=== PATIENT | male | born 1965 | race Caucasian/White ===

== ENCOUNTER 2019-03-14 13:32 | Emergency (ER) | payer SELFPAY ==
[~2019-03-14] VITALS: Ht 180.3 cm; Wt 63.5 kg
[2019-03-14] MEDS ORDERED: ALBUTEROL SULFATE 2.5 MG/3 ML NEBU NEB ONE (14:00)
[2019-03-14] MEDS ORDERED: IPRATROPIUM BROMIDE 0.5 MG/2.5 ML NEBU NEB ONE (14:00)
[2019-03-14] MEDS ORDERED: IV NORMAL SALINE 1000 ML BAG IV ONE (14:00)
[2019-03-14] MEDS ORDERED: methylPREDNISolone SOD SUCC 125 MG/2 ML VIAL IV ONE (14:00)
[2019-03-14] MEDS ORDERED: ALBUTEROL SULFATE 2.5 MG/3 ML NEBU ONE (14:09)
[2019-03-14] MEDS ORDERED: methylPREDNISolone SOD SUCC 125 MG/2 ML VIAL ONE (14:13)
[2019-03-14 14:14] LABS: BASOPHILS # (AUTO) 0.1 K/uL (0.0-8.0); BASOPHILS % (AUTO) 0.8 % (0.0-2.0); EOSINOPHILS # (AUTO) 1.5 K/uL (0.0-0.7); EOSINOPHILS % (AUTO) 21.1 % (0.0-7.0); HEMATOCRIT 48.3 % (36.7-47.1); LYMPHOCYTES # (AUTO) 1.8 K/uL (20.0-40.0); LYMPHOCYTES % (AUTO) 24.3 % (20.5-51.5); MEAN CORPUSCULAR HEMOGLOBIN 30.2 uug (23.8-33.4); MEAN CORPUSCULAR HGB CONC 33 g/dL (32.5-36.3); MONOCYTES # (AUTO) 0.7 K/uL (2.0-10.0); MONOCYTES % (AUTO) 9.8 % (0.0-11.0); NEUTROPHILS # (AUTO) 3.2 K/uL (1.8-8.9); PLATELET COUNT (AUTO) 260 K/uL (152-348); WHITE BLOOD COUNT (AUTO) 7.2 K/uL (3.6-10.2)
[2019-03-14 14:22] LABS: CREATININE 0.8 mg/dL (0.6-1.3); POTASSIUM 4.2 mmol/L (3.5-5.1)
[2019-03-14 14:28] LABS: BILIRUBIN,DIRECT 0.1 mg/dL (0.0-0.2); BILIRUBIN,TOTAL 0.5 mg/dL (0.2-1.0); TOTAL PROTEIN, SERUM 8.2 g/dL (6.4-8.2)
[2019-03-14 14:46] LABS: EOSINOPHILS % (MANUAL) 20 % (0-8); LYMPHOCYTES % (MANUAL) 28 % (20-40); MONOCYTES % (MANUAL) 7 % (2-10); NEUTROPHILS % (MANUAL) 45 % (42-75)
--- NOTE | 2019-03-14 15:16 | NUR ---
Patient discharged to home in stable conditon. Written and verbal after care instructions given. Patient verbalizes understanding of instructions.pt walks in steady gait. pt says feels better.
[2019-03-14 15:49] VITALS: BP 111/71
== END 2019-03-14 15:16 | disposition home or self-care (01) ==
LOC: ER 13:32
DX: J20.9 Acute bronchitis, unspecified (principal); J06.9 Acute upper respiratory infection, unspecified; Z88.2 Allergy status to sulfonamides
CPT/HCPCS: 36415; 71045; 80048; 80076; 84484; 85007; 85025; 87400; 93005; 94640; 96374; 99284; J2930; 70030-TC; A4663; J7030

== ENCOUNTER 2019-04-08 21:11 | Emergency (ER) | payer SELFPAY ==
[~2019-04-08] VITALS: Ht 177.8 cm; Wt 59.0 kg
--- NOTE | 2019-04-08 22:00 | NUR ---
Dr. Montalvo at bedside for MSE
[2019-04-08] MEDS ORDERED: IPRATROPIUM BROMIDE 0.5 MG/2.5 ML NEBU NEB ONE (22:15)
[2019-04-08] MEDS ORDERED: ALBUTEROL SULFATE 2.5 MG/3 ML NEBU NEB ONE (22:15)
[2019-04-08] MEDS ORDERED: IV NORMAL SALINE 1000 ML BAG IV ONE (22:15)
--- NOTE | 2019-04-08 22:15 | NUR ---
Patient declines blood draw and saline lock / IV fluids at this time
--- NOTE | 2019-04-08 23:28 | NUR ---
Patient discharged to home in stable conditon. Written and verbal after care instructions given. Patient verbalizes understanding of instructions. Patient ambulating with steady gait
[2019-04-08 23:29] VITALS: BP 121/84
[2019-06-09] MEDS ORDERED: METH4TAB3 PO (10:32)
[2019-06-09] MEDS ORDERED: ALBU18HF2 INH (10:32)
== END 2019-04-08 23:28 | disposition home or self-care (01) ==
LOC: ER 21:13
DX: J06.9 Acute upper respiratory infection, unspecified (principal); Z60.2 Problems related to living alone; Z88.2 Allergy status to sulfonamides
CPT/HCPCS: 71045; 93005; A4663; J3590; J7030

== ENCOUNTER 2019-06-05 10:38 | Inpatient (IN) | payer MEDICAID ==
[~2019-06-05] VITALS: Ht 172.7 cm; Wt 59.0 kg
--- NOTE | 2019-06-05 10:56 | NUR ---
Patient C/O SOB. A/O x3. Able to verbalize needs, able to speak complete sentenses O2 saturation 91% RA. Placed on 5L O2 via nasal cannula with SpO2 97%. Pt position to comfort, high fowlers position. SRx2 for safety. Able to walk per self without difficulty. Monitored accordingly
--- NOTE | 2019-06-05 10:58 | NUR ---
nursery technician at bedside
--- NOTE | 2019-06-05 10:58 | NUR ---
PT ANXIOUS AND INITIALLY REFUSED IV INSERTION AND REFUSED TO WEAR PPE FOR POSSIBLE RESPIRATORY INFECTIONS ISOLATION PREC INITIATED. PT KEPT CALM AND COMFORTABLE. REASSURED AND REORIENTED PT ABLE TO COMPLY EVENTUALLY PT ABLE TO WEAR PPE INSTRUCTED
--- NOTE | 2019-06-05 11:00 | NUR ---
PT ROOM ON NEG PRESSURE AIRBORNE/CONTACT/DROPLET ISOLATION PREC MINIMIZED PT ROOM CHECK PT MONITORED ACCORDINGLY
[2019-06-05] MEDS ORDERED: methylPREDNISolone SOD SUCC 125 MG/2 ML VIAL IV ONE (11:15)
[2019-06-05] MEDS ORDERED: predniSONE 10 MG TABLET PO ONE (11:15)
[2019-06-05] MEDS ORDERED: TERBUTALINE SULFATE 1 MG/1 ML VIAL SQ ONE (11:15)
[2019-06-05] MEDS ORDERED: TERBUTALINE SULFATE 1 MG/1 ML VIAL ONE (11:22)
[2019-06-05] MEDS ORDERED: methylPREDNISolone SOD SUCC 125 MG/2 ML VIAL ONE (11:22)
[2019-06-05] MEDS ORDERED: ALBUTEROL SULFATE 8 GM HFA.AER.AD IH PRN (11:30)
--- NOTE | 2019-06-05 11:34 | NUR ---
CALL WAS PLACED TO [facility] DR STEPHENS RETURNS SUPERVISOR.
[2019-06-05 11:45] LABS: BASOPHILS % (AUTO) 0.4 % (0.0-2.0); EOSINOPHILS # (AUTO) 0.5 K/uL (0.0-0.7); EOSINOPHILS % (AUTO) 4.2 % (0.0-7.0); HEMATOCRIT 47.7 % (36.7-47.1); HEMOGLOBIN 16.1 g/dL (12.5-16.3); LYMPHOCYTES # (AUTO) 1.1 K/uL (20.0-40.0); LYMPHOCYTES % (AUTO) 9.6 % (20.5-51.5); MEAN CORPUSCULAR HEMOGLOBIN 30.3 uug (23.8-33.4); MEAN CORPUSCULAR HGB CONC 34 g/dL (32.5-36.3); MEAN CORPUSCULAR VOLUME 89.9 fL (73.0-96.2); MONOCYTES # (AUTO) 0.8 K/uL (2.0-10.0); MONOCYTES % (AUTO) 7.4 % (0.0-11.0); NEUTROPHILS # (AUTO) 8.9 K/uL (1.8-8.9); NEUTROPHILS % (AUTO) 78.4 % (38.5-71.5); PLATELET COUNT (AUTO) 335 K/uL (152-348); RED BLOOD CELL COUNT(AUTO) 5.31 MIL/uL (4.06-5.63); WHITE BLOOD COUNT (AUTO) 11.4 K/uL (3.6-10.2)
[2019-06-05 11:50] LABS: ABG BASE EXCESS 3.7 mmol/L; ABG HCO3 29.6 mmol/L; ABG PCO2 48.8 mmHg (35.0-45.0); ABG PH 7.401 (7.350-7.450); ABG PO2 76.2 mmHg (75.0-100.0); ABG SITE RIGHT RADIAL; ABG TOTAL HEMOGLOBIN 16.2 G/dL (13.5-18.0); COHb 1.2 % (0.5-1.5); MetHb 0.2 % (0.0-1.5); O2Hb 94.4 % (94.0-97.0); VENT MODE Nasal Cannula
--- NOTE | 2019-06-05 11:50 | NUR ---
RT AT BEDSIDE FOR ABG DRAW RT LOWERED O2 FROM 5LPM TO 2LPM PT KEPT CALM AND COMFORTABLE. ABLE TO TOLERATE INHALER PT 92% O2SAT
[2019-06-05 11:53] LABS: CREATININE 0.7 mg/dL (0.6-1.3); POTASSIUM 4.2 mmol/L (3.5-5.1)
[2019-06-05 12:05] LABS: BILIRUBIN,DIRECT 0.1 mg/dL (0.0-0.2); BILIRUBIN,TOTAL 0.5 mg/dL (0.2-1.0); TOTAL PROTEIN, SERUM 8.1 g/dL (6.4-8.2)
--- NOTE | 2019-06-05 12:15 | NUR ---
PT ABLE TO TOLERATE 100% OF REGULAR LUNCH MEAL
--- NOTE | 2019-06-05 12:30 | NUR ---
SWALLOW EVAL DONE PT ABLE TO TAKE SIPS OF 30ML WATER
--- NOTE | 2019-06-05 12:30 | NUR ---
DR CHICAS ON THE PHONE WITH ERMOleg OK TO ADMIT TO TELE RM DX: COPD EXACERBATION UNDER LIAKOVETSKY
--- NOTE | 2019-06-05 13:05 | NUR ---
HAND OFF AND SBAR GIVEN TO LIZZ PT WILL BE TRANSFERED WITH ISOLATION PREC PER CURRENT POLICY
--- NOTE | 2019-06-05 14:30 | NUR ---
Pt. admitted to Tele Rm 318 Transported with isolation precations via gurney acc by 3 staff (2ERRN, 1ERLVN) Belongs List completed
--- NOTE | 2019-06-05 14:30 | NUR ---
Received patient from ER via [facility] with Diagnosis of COPD Exacerbation under Dr. Macedo, Patient is awake , alert and verbally responsive. On Oxygen at 2LPM, saturating 95-96%. No complain of pain at this time. patient on Contact and droplet isolation for r/o covid 19. Proper PPE strictly Observed. Kept clean and comfortable. Will continue to monitor.
[2019-06-05] MEDS ORDERED: IPRATROPIUM BROMIDE 0.5 MG/2.5 ML NEBU NEB PRN (15:30)
[2019-06-05 15:45] VITALS: BP 143/65
[2019-06-05] MEDS ORDERED: MAGNESIUM HYDROXIDE 30 ML LIQUID UDC PO PRN (16:30)
[2019-06-05] MEDS ORDERED: HYDROCODONE/APAP 5-325MG TABLET PO PRN (16:30)
[2019-06-05] MEDS ORDERED: ONDANSETRON 4 MG/2 ML VIAL IV PRN (16:30)
[2019-06-05] MEDS ORDERED: ACETAMINOPHEN 325 MG TABLET PO PRN (16:30)
[2019-06-05] MEDS: LEVOFLOXACIN 500 MG/D5W 500 MG in PREMIXED 1 EACH IV SCH (17:48)
--- NOTE | 2019-06-05 19:30 | NUR ---
Received patient awake and alert in bed, A/Ox3. No acute distress noted. No complaints of pain, no complaints of SOB on 2L NC saturating at 98%. Patient has history of COPD, titrated to 1.5L, saturating at 96-97%. Patient is Sinus tachy on the monitor. 100-110. Goes in the 120s when coughing, noted with productive coughing. Patient is on droplet and contact precautions for r/o COVID. Vitals WNL. No fevers noted. Heplock on the left AC is intact and patent. Safety measures initiated. Bed is low and locked, call light within reach. Will continue to monitor.
[2019-06-05 20:00] VITALS: BP 139/89
[2019-06-05] MEDS: methylPREDNISolone SOD SUCC 40 MG/ML VIAL IV SCH (21:01)
[2019-06-06 00:05] VITALS: BP 124/82
[2019-06-06 04:06] VITALS: BP 128/89
[2019-06-06] MEDS: methylPREDNISolone SOD SUCC 40 MG/ML VIAL IV SCH ×3 (05:42→21:29)
[2019-06-06] MEDS: PANTOPRAZOLE SODIUM 40 MG TABLET.DR PO SCH (06:06)
--- NOTE | 2019-06-06 06:10 | NUR ---
Patient slept intermittently throughout the night. SR-ST on the monitor. Patient states, he is feeling better. Still with occasional productive coughing. Medication given as ordered. Patient refused morning labs, educated patient, but still refused and stated "no they poked me twice yesterday, they can do it tomorrow, I can't given blood today" covering and lining supervisor stated he will try again after breakfast. Will endorse to next shift.
[2019-06-06 08:00] VITALS: BP 138/65
--- NOTE | 2019-06-06 08:00 | NUR ---
Received patient in bed, awake, alert and verbally responsive. On Oxygen at 2LPM, saturating 96%. No complain of Pain or discomfort. Afebrile. Remains on droplet and contact Isolation for r/o covid 19. Proper PPE strictly Observed. Kept clean and comfortable. Will continue to monitor.
[2019-06-06 08:54] LABS: BASOPHILS % (AUTO) 0.2 % (0.0-2.0); HEMATOCRIT 46.1 % (36.7-47.1); HEMOGLOBIN 15.5 g/dL (12.5-16.3); LYMPHOCYTES # (AUTO) 0.6 K/uL (20.0-40.0); LYMPHOCYTES % (AUTO) 4.1 % (20.5-51.5); MEAN CORPUSCULAR HEMOGLOBIN 30.3 uug (23.8-33.4); MEAN CORPUSCULAR HGB CONC 34 g/dL (32.5-36.3); MEAN CORPUSCULAR VOLUME 90.1 fL (73.0-96.2); MONOCYTES # (AUTO) 0.5 K/uL (2.0-10.0); MONOCYTES % (AUTO) 3.5 % (0.0-11.0); NEUTROPHILS # (AUTO) 13.5 K/uL (1.8-8.9); NEUTROPHILS % (AUTO) 92.2 % (38.5-71.5); PLATELET COUNT (AUTO) 339 K/uL (152-348); RED BLOOD CELL COUNT(AUTO) 5.12 MIL/uL (4.06-5.63); WHITE BLOOD COUNT (AUTO) 14.6 K/uL (3.6-10.2)
[2019-06-06 09:05] LABS: BILIRUBIN,TOTAL 0.3 mg/dL (0.2-1.0); CREATININE 0.8 mg/dL (0.6-1.3); PHOSPHOROUS 3.5 mg/dL (2.5-4.9); POTASSIUM 4.2 mmol/L (3.5-5.1); TOTAL PROTEIN, SERUM 7.4 g/dL (6.4-8.2)
[2019-06-06 12:00] VITALS: BP 128/78
[2019-06-06] MEDS: LEVOFLOXACIN 500 MG/D5W 500 MG in PREMIXED 1 EACH IV SCH (17:04)
--- NOTE | 2019-06-06 18:16 | NUR ---
Patient in bed, awake, alert and verbally responsive. No signs of distress noted. No SOB. No desaturation noted. Afebrile. No complain of Pain or discomfort. remains on contact/droplet precaution for r/o covid 19, still awaiting for result. All needs attended and met. Kept clean and comfortable. Will endorse to Oncoming Nurse.
[2019-06-06 20:13] VITALS: BP 129/87
[2019-06-06] MEDS: TEMAZEPAM 15 MG CAPSULE PO PRN (21:30)
--- NOTE | 2019-06-06 22:08 | NUR ---
patient received lying in bed watching tv. no s/s of acute distress. v/s stable. on RA 98%. all needs met and medications administered, tolerated well. patient requested temazepam, administered, tolerated well. will continue plan of care.
--- NOTE | 2019-06-07 03:00 | NUR ---
patient awoke from sleep. provided sandwich and drinks. resting comfortably. spo2 at 90% on NC 1L at this time on monitor. will continue to monitor.
[2019-06-07] MEDS: PANTOPRAZOLE SODIUM 40 MG TABLET.DR PO SCH (06:05)
[2019-06-07] MEDS: methylPREDNISolone SOD SUCC 40 MG/ML VIAL IV SCH ×3 (06:05→21:13)
[2019-06-07 06:29] VITALS: BP 120/92
--- NOTE | 2019-06-07 06:33 | NUR ---
patient slept intermittently throughout the night. no s/s of acute distress. v/s stable. afebrile. denies SOB or pain. will continue plan of care.
--- NOTE | 2019-06-07 08:29 | NUR ---
Received pt. resting in bed awake, alert and verbally responsive. No signs of distress noted. No SOB. No desaturation noted. Afebrile. Vitals stable. No complaints of Pain or discomfort. remains on contact/droplet precaution for r/o covid 19, still awaiting for result. All needs met. Kept clean and comfortable. safety measures in place. call light within reach. will continue to monitor pt.
[2019-06-07 10:56] VITALS: BP 127/82
[2019-06-07 16:00] VITALS: BP 141/94
[2019-06-07] MEDS: LEVOFLOXACIN 500 MG/D5W 500 MG in PREMIXED 1 EACH IV SCH (17:00)
--- NOTE | 2019-06-07 18:22 | NUR ---
pt. resting comfortably in bed. Pt. denies sob/ difficulty breathing. pt. denies pain/ discomfort. IV intact L AC 20 gauge intact patent. pt. on room air oxygen saturation within normal limits. no temperature throughout shift. safety measures in place. pt. on droplet/ contact precautions. call light within reach. will continue to monitor pt.
[2019-06-07 20:00] VITALS: BP 138/85
--- NOTE | 2019-06-07 20:14 | NUR ---
Received patient awake and alert in bed, no signs of acute distress noted. No complaints of pain or SOB. Patient stated that he is feeling better. Still noted with productive coughing. Vitals WNL. No fevers noted. On contract/droplet isolation, waiting for COVID19 results. Heplock on the left AC is intact and patent. Safety measures initiated. Bed is low and locked, call light within reach. Will continue to monitor.
[2019-06-07] MEDS: ACIDOPHILUS/BULGARICUS CHEW TAB PO SCH (21:12)
[2019-06-07] MEDS: TEMAZEPAM 15 MG CAPSULE PO PRN (21:13)
[2019-06-08 05:00] VITALS: BP 140/75
[2019-06-08 05:49] LABS: BASOPHILS % (AUTO) 0.1 % (0.0-2.0); EOSINOPHILS % (AUTO) 0.1 % (0.0-7.0); HEMATOCRIT 45.3 % (36.7-47.1); HEMOGLOBIN 15.3 g/dL (12.5-16.3); LYMPHOCYTES # (AUTO) 1.2 K/uL (20.0-40.0); LYMPHOCYTES % (AUTO) 9.3 % (20.5-51.5); MEAN CORPUSCULAR HEMOGLOBIN 30.3 uug (23.8-33.4); MEAN CORPUSCULAR HGB CONC 34 g/dL (32.5-36.3); MEAN CORPUSCULAR VOLUME 90.1 fL (73.0-96.2); MONOCYTES # (AUTO) 0.8 K/uL (2.0-10.0); MONOCYTES % (AUTO) 6.3 % (0.0-11.0); NEUTROPHILS # (AUTO) 10.6 K/uL (1.8-8.9); NEUTROPHILS % (AUTO) 84.2 % (38.5-71.5); PLATELET COUNT (AUTO) 316 K/uL (152-348); RED BLOOD CELL COUNT(AUTO) 5.03 MIL/uL (4.06-5.63); WHITE BLOOD COUNT (AUTO) 12.6 K/uL (3.6-10.2)
[2019-06-08 06:03] LABS: CREATININE 0.8 mg/dL (0.6-1.3); MAGNESIUM 1.9 mg/dL (1.8-2.4); PHOSPHOROUS 4.2 mg/dL (2.5-4.9); POTASSIUM 4.5 mmol/L (3.5-5.1)
[2019-06-08] MEDS: methylPREDNISolone SOD SUCC 40 MG/ML VIAL IV SCH ×3 (06:05→21:01)
[2019-06-08] MEDS: PANTOPRAZOLE SODIUM 40 MG TABLET.DR PO SCH (06:05)
--- NOTE | 2019-06-08 06:47 | NUR ---
Patient slept intermittently throughout the night, no distress noted. Vitals WNL. SR/ST on the monitor. Medications given as ordered. All needs met. Remains on droplet/contact precautions. Called lab for results, still pending. Will endorse to morning shift nurse.
[2019-06-08] MEDS: ACIDOPHILUS/BULGARICUS CHEW TAB PO SCH ×2 (08:20→21:01)
--- NOTE | 2019-06-08 09:00 | NUR ---
RECEIVED PATIENT AWAKE ALERT AND ORIENTED REMAIN ON RESP ISOLATION AND PRECAUTION ORDERED PENDING RESULTS OF THE COVID 19 CULTURES ORDERED ON ROOM AIR WITH NO SHORTNESS OF BREATH NOTED OCCASSIONAL COUGH EPISODES SPITTING UP SMALL AMOUNT OF WHITISH PHLEGM ABLE TO VERBALISE NEEDS CALL LIGHTS AND PERSONAL BELONGINGS ARE WITHIN EASY REACH AT THIS TIME WILL CONTINUE TO OBSERVE.
--- NOTE | 2019-06-08 10:14 | NUR ---
PATIENT SEEN AND EXAMINED BY ROCÍO MANUFACTURING CONTROLLER WITH NO NEW ORDERS AT THIS TIME.
[2019-06-08 12:33] VITALS: BP 141/79
--- NOTE | 2019-06-08 15:00 | NUR ---
RECEIVED RESULT FROM THE LAB PATIENT PATIENT IS NEGATIVE FOR COVID-19 CALLED THE DEBURRER MACHINE NOTIFIED HER AND ALSO NOTIFIED ROCÍO WORKSITE WELLNESS PRACTITIONER ASSISIGNED TO THIS PATIENT PATIENT REMOVED FROM ISOLATION AT THIS TIME OCCASSIONAL COUGH WITH SCANTY AMOUNT OF CLEAR THIN SECRETIONS REMAIN ON SOLU MEDROL ORDERED WILL CONTINUE TO OBSERVE
[2019-06-08 15:49] VITALS: BP 144/81
[2019-06-08] MEDS: LEVOFLOXACIN 500 MG/D5W 500 MG in PREMIXED 1 EACH IV SCH (17:23)
--- NOTE | 2019-06-08 18:30 | NUR ---
RESTING IN HIS ROOM WITH IV ATB IN PROGRESS ORDERED WITH NO ADVERSE OR ALLERGIC REACTIONS AT THIS TIME NO SOB NOTED TO BE USING O2 ON AND OFF WITH ADEQUATE SATS USES O2 AT TIMES STATED O2 MAKES HIM FEEL BETTER MADE COMFORTABLE WILL CONTINUE TO OBSERVE.
[2019-06-08 19:37] VITALS: BP 140/95
--- NOTE | 2019-06-08 19:38 | NUR ---
Received patient awake and alert in bed, no signs of acute distress noted. No complaints or pain or SOB, stated feeling good. Heplock on the left forearm is intact and patent. Patient no longer on droplet/contact isolation. Result for COVID19 is negative. Vitals WNL. Safety measures initiated. Bed is low and locked, call light within reach. Will continue to monitor.
[2019-06-08] MEDS: TEMAZEPAM 15 MG CAPSULE PO PRN (22:50)
[2019-06-09 04:54] VITALS: BP 138/80
[2019-06-09] MEDS: PANTOPRAZOLE SODIUM 40 MG TABLET.DR PO SCH (06:11)
[2019-06-09] MEDS: methylPREDNISolone SOD SUCC 40 MG/ML VIAL IV SCH ×2 (06:11→14:22)
--- NOTE | 2019-06-09 07:30 | NUR ---
PATIENT RECEIVED IN BED, AWAKE, ALERT, ORIENTED, HYPER VOCAL. USES O2 ON AND OFF BUT NO SIGNS OF RESPIRATORY DISTRESS. STATED THAT HE COUGHS OCCASIONALLY, ALSO STATED THAT HE SLEPT WELL LAST NIGHT. CALL LIGHTS AND ALL HIS PERSONAL BELONGINGS ARE WITHIN EASY REACH. PLAN FOR THE DAY IS DOCTOR TO SEE HIM AND DISCUSS POSSIBLE DISCHARGE AND HE EXPRESSED UNDERSTANDING. WILL CONTINUE TO OBSERVE.
[2019-06-09] MEDS: ACIDOPHILUS/BULGARICUS CHEW TAB PO SCH (08:26)
[2019-06-09 08:42] LABS: CREATININE 0.8 mg/dL (0.6-1.3); POTASSIUM 4.1 mmol/L (3.5-5.1)
[2019-06-09 08:52] LABS: LYMPHOCYTES # (AUTO) 1.3 K/uL (20.0-40.0); MONOCYTES # (AUTO) 0.7 K/uL (2.0-10.0); PLATELET COUNT (AUTO) 340 K/uL (152-348); RED BLOOD CELL COUNT(AUTO) 5.53 MIL/uL (4.06-5.63)
--- NOTE | 2019-06-09 08:59 | NUR ---
PATIENT SEEN AND EXAMINED BY MERRILLY VEGETABLE II FARMWORKER WITH DISCHARGE PLANNING AT THIS TIME AWAITING FOR ORDERS.
[2019-06-09 09:12] LABS: BASOPHILS % (AUTO) 0.2 % (0.0-2.0); EOSINOPHILS % (AUTO) 0.4 % (0.0-7.0); LYMPHOCYTES % (AUTO) 12.1 % (20.5-51.5); MEAN CORPUSCULAR HEMOGLOBIN 30.1 uug (23.8-33.4); MEAN CORPUSCULAR HGB CONC 33 g/dL (32.5-36.3); MEAN CORPUSCULAR VOLUME 91.1 fL (73.0-96.2); MONOCYTES % (AUTO) 6.9 % (0.0-11.0); NEUTROPHILS # (AUTO) 8.4 K/uL (1.8-8.9); NEUTROPHILS % (AUTO) 80.4 % (38.5-71.5); WHITE BLOOD COUNT (AUTO) 10.4 K/uL (3.6-10.2)
[2019-06-09 09:13] LABS: HEMATOCRIT 50.4 % (36.7-47.1); HEMOGLOBIN 16.7 g/dL (12.5-16.3)
--- NOTE | 2019-06-09 11:07 | NUR ---
PATIENT HAS A DISCHARGE ORDER PER THE PATTERN CHANGER STATED TO GIVE HIS LEVAQUIN THAT HE IS SUPPOSED TO GET AT 1800 TODAY BY 1400 THE PATIENT IS PLANNING TO BE PICKED UP BY 1500 PHARMACY AWARE TO SEND THE DOSE EARLY.
[2019-06-09 11:37] VITALS: BP 131/89
[2019-06-09] MEDS: LEVOFLOXACIN 500 MG/D5W 500 MG in PREMIXED 1 EACH IV SCH (14:22)
--- NOTE | 2019-06-09 16:30 | NUR ---
PATIENT DISCHARGED. PICKED UP BY HIS MOTHER'S CAREGIVER, BERTO. IN SATISFACTORY CONDITION, WITH DISCHARGE INSTRUCTION AND ALL HIS PERSONAL BELONGINGS. PATIENT INSTRUCTED TO EHS ENGINEER HIS MEDICATION FROM HIS LOCAL PHARMACY, TAKE MEDICATION ORDERED AND MAKE A FOLLOW UP APPOINTMENT WITH HIS PHYSICIAN IN ONE WEEK, PATIENT EXPRESSED UNDERSTANDING. DENIES SOB.
== END 2019-06-09 16:30 | disposition home or self-care (01) | DRG 140 ==
LOC: ER 10:38 → TELE3 13:21
PROVIDERS: ADMIT Internal Medicine; ATTEND Nurse Practitioner Acute Care
DX: J44.1 Chronic obstructive pulmonary disease with (acute) exacerbation (principal); E44.0 Moderate protein-calorie malnutrition; Z87.01 Personal history of pneumonia (recurrent); Z87.891 Personal history of nicotine dependence; E86.0 Dehydration; E87.1 Hypo-osmolality and hyponatremia; R73.03 Prediabetes; J45.909 Unspecified asthma, uncomplicated; Z68.1 Body mass index [BMI] 19.9 or less, adult
CPT/HCPCS: 36415; 36600; 70030-TC; 71045; 83735; 84100; 85025; 87400; 93005; A4663; G0378; J1956; J2920; J2930; J3105; J3535; J7060

== ENCOUNTER 2019-09-01 17:23 | Emergency (ER) | payer SELFPAY ==
[~2019-09-01] VITALS: Ht 172.7 cm; Wt 56.7 kg
[~2019-09-01 17:23] MED LIST: ALBU18HF2 INH; METH4TAB3 PO
--- NOTE | 2019-09-01 17:23 | NUR ---
Dr. Garcia at bedside for MSE
[2019-09-01] MEDS ORDERED: ALBUTEROL SULFATE 8 GM HFA.AER.AD IH STA (17:26)
[2019-09-01] MEDS ORDERED: DOXYCYCLINE HYCLATE 100 MG TABLET ONE (17:42)
[2019-09-01] MEDS ORDERED: predniSONE 50 MG TABLET ONE (17:43)
[2019-09-01] MEDS ORDERED: predniSONE 10 MG TABLET ONE (17:43)
[2019-09-01] MEDS ORDERED: predniSONE 20 MG TABLET PO ONE (17:45)
[2019-09-01] MEDS ORDERED: DOXYCYCLINE HYCLATE 100 MG TABLET PO ONE (17:45)
--- NOTE | 2019-09-01 18:15 | NUR ---
Patient discharged to home in stable condition. Written and verbal after care instructions given. Patient verbalizes understanding of instructions. Stressed follow up or return to ER for worsening s/s. Patient ambulating with steady gait. NAD noted
[2019-09-01 18:32] VITALS: BP 128/63
== END 2019-09-01 18:15 | disposition home or self-care (01) ==
LOC: ER 17:23
DX: J44.1 Chronic obstructive pulmonary disease with (acute) exacerbation (principal); F17.200 Nicotine dependence, unspecified, uncomplicated; Z87.01 Personal history of pneumonia (recurrent); R73.03 Prediabetes
CPT/HCPCS: 71045; 93005; 94640; 94664; 99284; J7512 ×2; 70030-TC; A4663; J3535

== ENCOUNTER 2020-05-14 17:22 | Inpatient (IN) | payer MEDICAID, MEDICARE ==
[~2020-05-14] VITALS: Ht 172.7 cm; Wt 59.0 kg
[~2020-05-14 17:22] MED LIST changes: -METH4TAB3 PO
[2020-05-14] MEDS ORDERED: CLINDAMYCIN PHOSPHATE IV 900 MG in IV DEXTROSE 5% 100 ML IV ONE (18:15)
[2020-05-14] MEDS ORDERED: VANCOMYCIN IV 1,000 MG in IV DEXTROSE 5% 250 ML IV ONE (18:15)
[2020-05-14] MEDS ORDERED: IMIPENEM/CILASTATIN SODIUM 1,000 MG in IV NORMAL SALINE 250 ML IV ONE (18:15)
[2020-05-14] MEDS ORDERED: VANCOMYCIN 1G/D5W 200 ML PIGGYBACK IV ONE (18:15)
--- NOTE | 2020-05-14 18:37 | NUR ---
PT IS IN ROOM #2B. DR LINTON EVALUATED THE PT.
[2020-05-14 18:38] LABS: BASOPHILS # (AUTO) 0.1 K/uL (0.0-8.0); BASOPHILS % (AUTO) 0.6 % (0.0-2.0); EOSINOPHILS # (AUTO) 0.6 K/uL (0.0-0.7); EOSINOPHILS % (AUTO) 3.2 % (0.0-7.0); HEMATOCRIT 32.2 % (36.7-47.1); HEMOGLOBIN 10.9 g/dL (12.5-16.3); LYMPHOCYTES # (AUTO) 1.5 K/uL (20.0-40.0); LYMPHOCYTES % (AUTO) 8.6 % (20.5-51.5); MEAN CORPUSCULAR HEMOGLOBIN 30.4 uug (23.8-33.4); MEAN CORPUSCULAR HGB CONC 34 g/dL (32.5-36.3); MEAN CORPUSCULAR VOLUME 89.4 fL (73.0-96.2); MONOCYTES # (AUTO) 0.8 K/uL (2.0-10.0); MONOCYTES % (AUTO) 4.6 % (0.0-11.0); NEUTROPHILS # (AUTO) 14.3 K/uL (1.8-8.9); PLATELET COUNT (AUTO) 512 K/uL (152-348); WHITE BLOOD COUNT (AUTO) 17.3 K/uL (3.6-10.2)
[2020-05-14 18:45] LABS: CREATININE 0.8 mg/dL (0.6-1.3); POTASSIUM 4.2 mmol/L (3.5-5.1)
[2020-05-14 18:51] LABS: BILIRUBIN,DIRECT 0.1 mg/dL (0.0-0.2); BILIRUBIN,TOTAL 0.2 mg/dL (0.2-1.0); TOTAL PROTEIN, SERUM 6.8 g/dL (6.4-8.2)
[2020-05-14] MEDS ORDERED: VANCOMYCIN IV 200 ML ONE (18:56)
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
[2020-05-14] MEDS ORDERED: CLINDAMYCIN 900MG/D5W 100ML IVPB **ER PYXIS ONLY IJ ONE (20:04)
[2020-05-14] MEDS ORDERED: ACETAMINOPHEN 325 MG TABLET PO PRN (20:15)
[2020-05-14] MEDS ORDERED: MAGNESIUM HYDROXIDE 30 ML LIQUID UDC PO PRN (20:15)
[2020-05-14] MEDS ORDERED: Z GUARD REMEDY PASTE 57 GM TUBE TOP PRN (20:15)
[2020-05-14] MEDS ORDERED: ONDANSETRON 4 MG/2 ML VIAL IV PRN (20:15)
[2020-05-14] MEDS ORDERED: ALBUTEROL SULFATE 8 GM HFA.AER.AD INH PRN (20:30)
--- NOTE | 2020-05-14 20:40 | NUR ---
Report given to Maritza GALLEGOS. Patient will be transferred to Room 330. All belongings with patient. Old record with patient.
[2020-05-14] MEDS: IV NS 1000 ML 1,000 ML IV PRN (21:21)
[2020-05-14] MEDS ORDERED: MEROPENEM 1 G VIAL IV ONE (21:33)
[2020-05-14] MEDS: ENOXAPARIN SODIUM 40 MG/0.4 ML DISP.SYRIN SQ SCH (21:37)
[2020-05-14] MEDS: MEROPENEM 1 G in IV NORMAL SALINE 100 ML IV SCH (21:56)
[2020-05-14 22:00] VITALS: BP 103/77
[2020-05-14] MEDS ORDERED: MEROPENEM 1 G in IV NORMAL SALINE 100 ML IV SCH (22:00)
[2020-05-14 23:00] VITALS: BP 103/77
[2020-05-15 04:00] VITALS: BP 100/66
[2020-05-15] MEDS: MEROPENEM 1 G in IV NORMAL SALINE 100 ML IV SCH ×3 (05:01→22:05)
[2020-05-15] MEDS: PANTOPRAZOLE SODIUM 40 MG TABLET.DR PO SCH (06:19)
[2020-05-15] MEDS: HYDROCODONE/APAP 5-325MG TABLET PO PRN ×2 (06:19→23:43)
--- NOTE | 2020-05-15 06:46 | NUR ---
Pt slept intermittently throughout the night. Admitted to PA at 2105H. Assessment complete and all belongings accounted for. Tolerated all medications well. Wound care done of left foot, pictures in the chart. Wound care consult is ordered. Bed is locked and in lowest position, call light is within reach. No other issues or concerns at this time. Will endorse to day shift.
[2020-05-15 07:10] LABS: BASOPHILS # (AUTO) 0.1 K/uL (0.0-8.0); BASOPHILS % (AUTO) 0.9 % (0.0-2.0); EOSINOPHILS # (AUTO) 0.3 K/uL (0.0-0.7); EOSINOPHILS % (AUTO) 3.7 % (0.0-7.0); HEMATOCRIT 31.6 % (36.7-47.1); HEMOGLOBIN 10.6 g/dL (12.5-16.3); LYMPHOCYTES # (AUTO) 1.3 K/uL (20.0-40.0); LYMPHOCYTES % (AUTO) 13.7 % (20.5-51.5); MEAN CORPUSCULAR HEMOGLOBIN 30.3 uug (23.8-33.4); MEAN CORPUSCULAR HGB CONC 34 g/dL (32.5-36.3); MONOCYTES # (AUTO) 0.6 K/uL (2.0-10.0); MONOCYTES % (AUTO) 6.7 % (0.0-11.0); PLATELET COUNT (AUTO) 499 K/uL (152-348); RED BLOOD CELL COUNT(AUTO) 3.51 MIL/uL (4.06-5.63); WHITE BLOOD COUNT (AUTO) 9.4 K/uL (3.6-10.2)
[2020-05-15 07:18] LABS: CREATININE 0.7 mg/dL (0.6-1.3); MAGNESIUM 1.9 mg/dL (1.8-2.4); PHOSPHOROUS 3.4 mg/dL (2.5-4.9); POTASSIUM 3.9 mmol/L (3.5-5.1)
[2020-05-15] MEDS: VANCOMYCIN IV 750 MG in IV DEXTROSE 5% 250 ML IV SCH ×2 (08:00→20:34)
[2020-05-15 08:18] LABS: THYROID STIMULATING HORMONE 1.151 mIU/mL (0.358-3.740)
[2020-05-15 12:00] VITALS: BP 113/63
[2020-05-15 12:06] LABS: *AMPHETAMINE, URINE NEGATIVE (NEGATIVE); *CANNABINOID, URINE NEGATIVE (NEGATIVE); *COCCAINE, URINE NEGATIVE (NEGATIVE); *OPIATE, URINE POSITIVE (NEGATIVE); *PHENCYCLIDINE SCREEN,URINE NEGATIVE (NEGATIVE)
[2020-05-15 15:14] VITALS: BP 119/79
[2020-05-15] MEDS: IV NS 1000 ML 1,000 ML IV PRN (17:51)
--- NOTE | 2020-05-15 19:27 | NUR ---
pt awake alert and orientedx4, all medications given as ordered, pt on room air, no reports of pain, no signs of distress noted. all needs met this shift. pt has healthy appetite, cooperative with plan of care. Pt has BRP, ambulates to restroom, pt has walker in room at bedside. On regular diet, dressing changed, culture taken pending results, applied xerofoam, kerlix and coband. dressing is clean dry and intact. IV access on the right FA 18g IVf infusing NS @75cc, patent and intact. bed in low and locked position, call light within reach, all medications given as ordered, will endorse to oncoming nurse.
--- NOTE | 2020-05-15 20:14 | NUR ---
Received patient AAOx4. No s/s of acute distress noted at this time. Pt on RA denies SOB. Left leg dressing clean, dry, and intact. Pt c/o discomfort and Right FA IV site, will insert a new IV. Pt refused Lovenox. Provided patient with medication education and reviewed the benefits and risk. Patient continued to refused. Safety measures in place, bed locked in low position, and call light within reach.
[2020-05-15] MEDS: ENOXAPARIN SODIUM 40 MG/0.4 ML DISP.SYRIN SQ SCH ×2 (20:38→21:00)
[2020-05-15 21:03] VITALS: BP 114/61
[2020-05-16] MEDS ORDERED: diphenhydrAMINE 25 MG CAP PO PRN (01:00)
[2020-05-16 05:17] VITALS: BP 130/83
[2020-05-16] MEDS: MEROPENEM 1 G in IV NORMAL SALINE 100 ML IV SCH ×3 (05:21→21:56)
[2020-05-16] MEDS: PANTOPRAZOLE SODIUM 40 MG TABLET.DR PO SCH (06:24)
--- NOTE | 2020-05-16 07:30 | NUR ---
Received patient in bed sleeping but easily arousable. No resp distress noted. No facial grimacing. Left lower leg dressing intact. No bleeding noted. Bed kept low and locked. Call button within reach. Will continue to monitor.
--- NOTE | 2020-05-16 08:35 | NUR ---
Patient with scheduled vanco trough this morning at 0700. However, patient refused saying he wants it after breakfast. Called pharmacy and spoke to Crow said to hold Vancomycin 8am dose for now until result. Spoke to Natanael at lab and confirmed he will remind ceo ziff davis to come back. Patient aware and agreed.
[2020-05-16 09:38] LABS: BASOPHILS % (AUTO) 0.4 % (0.0-2.0); EOSINOPHILS # (AUTO) 0.3 K/uL (0.0-0.7); EOSINOPHILS % (AUTO) 2.6 % (0.0-7.0); HEMATOCRIT 33.2 % (36.7-47.1); HEMOGLOBIN 11.2 g/dL (12.5-16.3); LYMPHOCYTES # (AUTO) 1.1 K/uL (20.0-40.0); LYMPHOCYTES % (AUTO) 11.3 % (20.5-51.5); MEAN CORPUSCULAR HEMOGLOBIN 30.4 uug (23.8-33.4); MEAN CORPUSCULAR HGB CONC 34 g/dL (32.5-36.3); MEAN CORPUSCULAR VOLUME 90.1 fL (73.0-96.2); MONOCYTES # (AUTO) 0.6 K/uL (2.0-10.0); MONOCYTES % (AUTO) 5.7 % (0.0-11.0); NEUTROPHILS # (AUTO) 8.1 K/uL (1.8-8.9); PLATELET COUNT (AUTO) 585 K/uL (152-348); RED BLOOD CELL COUNT(AUTO) 3.68 MIL/uL (4.06-5.63); WHITE BLOOD COUNT (AUTO) 10.1 K/uL (3.6-10.2)
[2020-05-16 09:43] LABS: CREATININE 0.9 mg/dL (0.6-1.3); MAGNESIUM 1.9 mg/dL (1.8-2.4); PHOSPHOROUS 3.1 mg/dL (2.5-4.9)
[2020-05-16] MEDS: VANCOMYCIN IV 750 MG in IV DEXTROSE 5% 250 ML IV SCH ×2 (09:55→17:20)
[2020-05-16 12:51] VITALS: BP 112/75
[2020-05-16] MEDS: HYDROCODONE/APAP 5-325MG TABLET PO PRN ×2 (13:05→21:26)
[2020-05-16 15:49] VITALS: BP 110/80
[2020-05-16] MEDS: METFORMIN HCL 500 MG TABLET PO SCH (17:20)
--- NOTE | 2020-05-16 18:52 | NUR ---
Patient is alert and oriented. Denies sob. Due meds given and tolerated. On IV Vancomycin and Merrem tolerated. No adverse reaction noted. LFA IV intact and patent. Patient is comfortable. Bed kept low and locked at all times. Call light within reach. Needs attended. Will continue to monitor.
[2020-05-16 20:49] VITALS: BP 130/80
[2020-05-16] MEDS: ENOXAPARIN SODIUM 40 MG/0.4 ML DISP.SYRIN SQ SCH (21:00)
[2020-05-17] MEDS: VANCOMYCIN IV 750 MG in IV DEXTROSE 5% 250 ML IV SCH ×2 (01:48→10:23)
[2020-05-17] MEDS: IV NS 1000 ML 1,000 ML IV PRN (01:50)
[2020-05-17 04:58] VITALS: BP 142/85
[2020-05-17] MEDS: MEROPENEM 1 G in IV NORMAL SALINE 100 ML IV SCH ×3 (05:29→21:11)
[2020-05-17] MEDS: PANTOPRAZOLE SODIUM 40 MG TABLET.DR PO SCH (06:31)
[2020-05-17 06:52] LABS: BASOPHILS # (AUTO) 0.1 K/uL (0.0-8.0); BASOPHILS % (AUTO) 0.8 % (0.0-2.0); EOSINOPHILS # (AUTO) 0.1 K/uL (0.0-0.7); EOSINOPHILS % (AUTO) 0.9 % (0.0-7.0); HEMATOCRIT 34.7 % (36.7-47.1); HEMOGLOBIN 11.5 g/dL (12.5-16.3); LYMPHOCYTES # (AUTO) 1.1 K/uL (20.0-40.0); LYMPHOCYTES % (AUTO) 10.6 % (20.5-51.5); MEAN CORPUSCULAR HEMOGLOBIN 30.4 uug (23.8-33.4); MEAN CORPUSCULAR HGB CONC 33 g/dL (32.5-36.3); MEAN CORPUSCULAR VOLUME 91.7 fL (73.0-96.2); MONOCYTES # (AUTO) 0.8 K/uL (2.0-10.0); MONOCYTES % (AUTO) 7.7 % (0.0-11.0); NEUTROPHILS # (AUTO) 8.1 K/uL (1.8-8.9); PLATELET COUNT (AUTO) 519 K/uL (152-348); RED BLOOD CELL COUNT(AUTO) 3.78 MIL/uL (4.06-5.63); WHITE BLOOD COUNT (AUTO) 10.2 K/uL (3.6-10.2)
[2020-05-17 07:19] LABS: CARBON DIOXIDE 26 mmol/L (21-32); CHLORIDE 100 mmol/L (98-107); CREATININE 0.5 mg/dL (0.6-1.3); GLUCOSE 94 mg/dL (74-106); MAGNESIUM 2.1 mg/dL (1.8-2.4); PHOSPHOROUS 3.3 mg/dL (2.5-4.9); POTASSIUM 4.7 mmol/L (3.5-5.1); UREA NITROGEN, BLOOD 10 mg/dL (7-18)
--- NOTE | 2020-05-17 07:35 | NUR ---
Pt is in bed resting, A&O4 on room air saturating at 99%. LFA IV is patent and flushing well. No acute distress noted. Pt is able to make needs known. Bed in lowest position. Safety measures in place. Call light in reach. Will continue to monitor.
[2020-05-17] MEDS: METFORMIN HCL 500 MG TABLET PO SCH ×2 (08:54→18:56)
[2020-05-17] MEDS: HYDROCODONE/APAP 5-325MG TABLET PO PRN ×2 (08:54→22:41)
[2020-05-17 12:00] VITALS: BP 107/66
[2020-05-17 16:00] VITALS: BP 104/63
[2020-05-17] MEDS: VANCOMYCIN IV 1,000 MG in IV DEXTROSE 5% 250 ML IV SCH (18:56)
--- NOTE | 2020-05-17 19:57 | NUR ---
Pt is in bed resting, A&O4 on room air saturating at 98%. New IV inserted on LFA is flushing well and patent, received Vanco and Merrem as ordered. Pt instructed to be NPO at midnight for procedure tomorrow at noon. Dressing changed during shift. All Meds given as ordered. All needs met. Safety measures in place. Will endorse to oncoming nurse.
[2020-05-17 20:18] VITALS: BP 124/70
[2020-05-17] MEDS: ENOXAPARIN SODIUM 40 MG/0.4 ML DISP.SYRIN SQ SCH (20:48)
--- NOTE | 2020-05-17 23:12 | NUR ---
Received patient AAOx4. No s/s of acute distress noted at this time. VSS. Left leg dressing clean, dry, and intact. Pt c/o discomfort in leg 7/10 pain administered NORCO PRN and Left FA IV site 20G, patent and intact infusing NS 75cc/hr and IV antibiotic. Pt refused Lovenox. Provided patient with medication education and reviewed the benefits and risk. Patient verbalized understanding and refuses. Snack provided. Aware of NPO after midnight. Safety measures in place, bed locked in low position, and call light within reach. Will monitor through the night.
[2020-05-18] MEDS: VANCOMYCIN IV 1,000 MG in IV DEXTROSE 5% 250 ML IV SCH ×3 (02:38→18:02)
[2020-05-18] MEDS: MEROPENEM 1 G in IV NORMAL SALINE 100 ML IV SCH ×3 (05:51→22:41)
[2020-05-18] MEDS: PANTOPRAZOLE SODIUM 40 MG TABLET.DR PO SCH (06:06)
[2020-05-18] MEDS: HYDROCODONE/APAP 5-325MG TABLET PO PRN (06:06)
[2020-05-18 06:15] LABS: BASOPHILS # (AUTO) 0.1 K/uL (0.0-8.0); BASOPHILS % (AUTO) 1.3 % (0.0-2.0); EOSINOPHILS # (AUTO) 0.2 K/uL (0.0-0.7); EOSINOPHILS % (AUTO) 2.4 % (0.0-7.0); HEMATOCRIT 32.8 % (36.7-47.1); HEMOGLOBIN 10.9 g/dL (12.5-16.3); LYMPHOCYTES # (AUTO) 1.1 K/uL (20.0-40.0); LYMPHOCYTES % (AUTO) 14.8 % (20.5-51.5); MEAN CORPUSCULAR HEMOGLOBIN 29.9 uug (23.8-33.4); MEAN CORPUSCULAR HGB CONC 33 g/dL (32.5-36.3); MEAN CORPUSCULAR VOLUME 90.1 fL (73.0-96.2); MONOCYTES # (AUTO) 0.8 K/uL (2.0-10.0); MONOCYTES % (AUTO) 10.1 % (0.0-11.0); NEUTROPHILS # (AUTO) 5.5 K/uL (1.8-8.9); NEUTROPHILS % (AUTO) 71.4 % (38.5-71.5); PLATELET COUNT (AUTO) 453 K/uL (152-348); RED BLOOD CELL COUNT(AUTO) 3.64 MIL/uL (4.06-5.63); WHITE BLOOD COUNT (AUTO) 7.7 K/uL (3.6-10.2)
[2020-05-18 06:32] LABS: CARBON DIOXIDE 31 mmol/L (21-32); CHLORIDE 100 mmol/L (98-107); CREATININE 0.6 mg/dL (0.6-1.3); GLUCOSE 100 mg/dL (74-106); MAGNESIUM 1.9 mg/dL (1.8-2.4); PHOSPHOROUS 3.9 mg/dL (2.5-4.9); UREA NITROGEN, BLOOD 11 mg/dL (7-18)
[2020-05-18] MEDS: METFORMIN HCL 500 MG TABLET PO SCH ×2 (08:00→18:02)
--- NOTE | 2020-05-18 09:34 | NUR ---
RECEIVED PATIENT ALERT AND ORIENTED x 4, SLEEPING INTERMITTENTLY THIS MORNING. VSS. AWARE OF NPO STATUS FOR SURGICAL WOUND DEBRIDEMENT TODAY. METFORMIN HELD D/T MORNING LAB GLUCOSE 100 AND NPO STATUS UNTIL POST-SURGERY.VERBALIZED UNDERSTANDING. IV ON LEFT FOREARM 20G - FLUSHED AND PATENT. SAFETY PRECAUTION IN PLACE. WILL CONTINUE TO MONITOR.
--- NOTE | 2020-05-18 10:21 | NUR ---
FOOD DELIVERY FROM [employer] RECEIVED AND DELIVERED BY SECURITY UP TO THIRD FLOOR NURSING STATION. INTERCEPTED D/T PATIENT'S NPO STATUS PRIOR TO SCHEDULED SURGERY. PHARMACIST AIDE AT NURSING STATION INQUIRING ABOUT PATIENT STATUS TO CONFIRM HOMELESS STATUS. INFORMED PHARMACIST AIDE OF THAT PATIENT IS ASLEEP AND SLUMP OVER HIS BED SO IT WILL BE DIFFICULT TO INTERVIEW HIM AT THIS TIME, RAISING SUSPICION D/T PATIENT'S POLYSUBSTANCE ABUSE. PATIENT RECEIVED SAME [employer] DELIVERY YESTERDAY. SEARCHED [employer]S BAG AND FOUND THREE WHITE, OVAL PILLS, AND A TARRY BLACK SUBSTANCE WRAPPED IN FOIL. REMOVED FROM THE SANDY'S BAG AND GIVEN TO SECURITY. [employer] CALLED BY [employer] REGARDING THE SUBSTANCES FOUND. MD NOTIFIED AND AWARE OF SITUATION. WILL CONTINUE TO MONITOR.
--- NOTE | 2020-05-18 10:25 | NUR ---
Commercial Counsel attempted to meet with the patient to verify living situation, but was informed by patient's nurse Geri that patient was lethargic at this time. SW attempted to gather information from nursing regarding patient's living situation and psychosocial needs, and was informed that patient's living situation was unclear. Nursing also informed this SW that patient has a history of polysubstance use, and that patient's friends were delivering Anna's to patient, both yesterday and today. Due to patient being NPO in preparation for surgery today, the Anna's meal that was delivered today was being kept for the patient to have at a later time. Nursing also described fluctuations in patient's level of consciousness and patient's mood over the last couple of days. Per protocol, the Anna's bag that was delivered today was searched, and unprescribed narcotics were found folded up in tissue and foil and placed in-between the bread and the meat antony. air defense artillery officer Saturnino and security attendant Sajan Gutierrez were informed, along with Slate Roofer Osiris. SW will remain available to follow-up with the patient at a later time.
--- NOTE | 2020-05-18 11:30 | NUR ---
PICKED UP BY OR STAFF. VSS. NO S/S OF DISTRESS NOTED. JEWELRY REMOVED AND PLACED AT BEDSIDE, PER PATIENT REQUEST.
[2020-05-18 11:42] VITALS: BP 120/83
[2020-05-18] MEDS ORDERED: FENTANYL CITRATE 100 MCG/2 ML AMPUL ONE (12:12)
[2020-05-18] MEDS ORDERED: BUPIVACAINE PF 0.5% 30 ML VIAL ONE (12:32)
[2020-05-18] MEDS: IV NS 1000 ML 1,000 ML IV PRN (13:54)
[2020-05-18 15:13] VITALS: BP 132/90
[2020-05-18] MEDS ORDERED: PROPOFOL 200 MG/20 ML BOTTLE IV ONE (15:44)
[2020-05-18] MEDS ORDERED: LIDOCAINE-MPF 2% 5 ML VIAL MC ONE (15:44)
[2020-05-18] MEDS: MORPHINE SULFATE 2 MG/1 ML DISP.SYRIN IV PRN ×2 (15:59→23:11)
[2020-05-18 20:18] VITALS: BP 121/73
[2020-05-18] MEDS: ENOXAPARIN SODIUM 40 MG/0.4 ML DISP.SYRIN SQ SCH (21:00)
--- NOTE | 2020-05-18 23:36 | NUR ---
Patient refused lovenox inj. taught patient the risk and benefit of the medication but strongly refused.
[2020-05-19] MEDS: VANCOMYCIN IV 1,000 MG in IV DEXTROSE 5% 250 ML IV SCH ×3 (02:26→19:01)
[2020-05-19] MEDS: MORPHINE SULFATE 2 MG/1 ML DISP.SYRIN IV PRN ×4 (03:32→21:34)
[2020-05-19 04:21] VITALS: BP 116/78
[2020-05-19] MEDS: MEROPENEM 1 G in IV NORMAL SALINE 100 ML IV SCH ×3 (05:43→21:34)
[2020-05-19] MEDS: PANTOPRAZOLE SODIUM 40 MG TABLET.DR PO SCH (06:23)
[2020-05-19 07:19] LABS: CREATININE 0.7 mg/dL (0.6-1.3); POTASSIUM 3.8 mmol/L (3.5-5.1)
--- NOTE | 2020-05-19 07:39 | NUR ---
PATIENT ALERT ORIENTED, NO SOB NO CHEST PAIN. PATIENT CONT PAIN MANAGEMENT, PATIENT LEFT LEG DRESSING INTACT, NO BLEEDING NOTED, CONT TO MONITOR.
[2020-05-19] MEDS: METFORMIN HCL 500 MG TABLET PO SCH ×2 (08:36→18:00)
[2020-05-19] MEDS: HYDROCODONE/APAP 5-325MG TABLET PO PRN (08:52)
[2020-05-19 11:53] VITALS: BP 110/77
--- NOTE | 2020-05-19 13:49 | NUR ---
WOUND DRESSING CHANGED BY DR. ROOT AT BEDSIDE. PHOTO TAKEN OF THE WOUND AND PLACED IN CHART. DENIES SOB. COMPLAINTS OF PAIN POST DRESSING CHANGE. ELEVATED LEFT LEG AND ASSIST IN REPOSITIONING PATIENT. WILL F/U ON PAIN MEDICATION AVAILABLE. WILL CONTINUE TO MONITOR.
[2020-05-19 16:30] VITALS: BP 110/73
[2020-05-19] MEDS: ALBUTEROL SULFATE 2.5 MG/3 ML NEBU NEB PRN (16:55)
[2020-05-19 20:28] VITALS: BP 117/75
[2020-05-19] MEDS ORDERED: LOPERAMIDE HCL 2 MG CAPSULE PO ONE (21:15)
[2020-05-19] MEDS: IV NS 1000 ML 1,000 ML IV PRN (21:35)
[2020-05-19] MEDS: ENOXAPARIN SODIUM 40 MG/0.4 ML DISP.SYRIN SQ SCH (21:50)
[2020-05-20] MEDS: VANCOMYCIN IV 1,000 MG in IV DEXTROSE 5% 250 ML IV SCH ×2 (02:02→10:03)
[2020-05-20] MEDS: ALBUTEROL SULFATE 2.5 MG/3 ML NEBU NEB PRN (02:14)
--- NOTE | 2020-05-20 02:18 | NUR ---
Received patient in bed AAOx3-4. No s/s of acute distress noted at this time. Pt on RA denies SOB at this time. Left lower leg dressing clean, dry, and intact. Pt c/o episode of diarrhea, Notified Anam SHARMA, new order for one time imodium, will administer per order. MERLINE midline patent and intact. Safety measures in place, call light in reach, bed locked and in low position.
[2020-05-20 04:28] VITALS: BP 131/84
[2020-05-20] MEDS: MORPHINE SULFATE 2 MG/1 ML DISP.SYRIN IV PRN (04:44)
[2020-05-20] MEDS: MEROPENEM 1 G in IV NORMAL SALINE 100 ML IV SCH (05:27)
[2020-05-20 06:13] LABS: BASOPHILS # (AUTO) 0.1 K/uL (0.0-8.0); BASOPHILS % (AUTO) 0.8 % (0.0-2.0); EOSINOPHILS # (AUTO) 0.2 K/uL (0.0-0.7); EOSINOPHILS % (AUTO) 2.3 % (0.0-7.0); HEMATOCRIT 36.1 % (36.7-47.1); HEMOGLOBIN 11.7 g/dL (12.5-16.3); LYMPHOCYTES # (AUTO) 1.1 K/uL (20.0-40.0); LYMPHOCYTES % (AUTO) 15.7 % (20.5-51.5); MEAN CORPUSCULAR HEMOGLOBIN 29.9 uug (23.8-33.4); MEAN CORPUSCULAR HGB CONC 33 g/dL (32.5-36.3); MEAN CORPUSCULAR VOLUME 91.8 fL (73.0-96.2); MONOCYTES # (AUTO) 0.8 K/uL (2.0-10.0); MONOCYTES % (AUTO) 11.2 % (0.0-11.0); NEUTROPHILS # (AUTO) 4.8 K/uL (1.8-8.9); PLATELET COUNT (AUTO) 424 K/uL (152-348); RED BLOOD CELL COUNT(AUTO) 3.93 MIL/uL (4.06-5.63); WHITE BLOOD COUNT (AUTO) 6.9 K/uL (3.6-10.2)
[2020-05-20] MEDS: PANTOPRAZOLE SODIUM 40 MG TABLET.DR PO SCH (06:19)
[2020-05-20 06:40] LABS: CARBON DIOXIDE 25 mmol/L (21-32); CHLORIDE 102 mmol/L (98-107); CREATININE 0.5 mg/dL (0.6-1.3); GLUCOSE 101 mg/dL (74-106); MAGNESIUM 1.9 mg/dL (1.8-2.4); PHOSPHOROUS 4.1 mg/dL (2.5-4.9); POTASSIUM 4.3 mmol/L (3.5-5.1); UREA NITROGEN, BLOOD 10 mg/dL (7-18)
--- NOTE | 2020-05-20 07:30 | NUR ---
received change of shift report. pt in bed resting, no complaints of pain at this time, on room air, no signs of shortness of breath. Left lower leg wound covered with dressing, clean, dry and intact. A/O x4, amb, steady gait, pt has BRP, pt has urinal at bedside, IV access on the right UA midline 20g running NS at 75cc. bed in low and locked position, call light within reach, safety precautions in place.
[2020-05-20] MEDS ORDERED: LOPERAMIDE HCL 2 MG CAPSULE PO ONE (08:45)
[2020-05-20] MEDS: METFORMIN HCL 500 MG TABLET PO SCH (08:58)
[2020-05-20] MEDS ORDERED: ENSURE ENLIVE (VAN) 240 ML LIQUID PO SCH (09:00)
[2020-05-20 12:01] VITALS: BP 145/87
[2020-05-20] MEDS ORDERED: LEVO500T90 PO (12:34)
[2020-05-20] MEDS ORDERED: DOXY150T3 PO (12:34)
[2020-05-20] MEDS ORDERED: METF-440 PO (12:41)
--- NOTE | 2020-05-20 13:49 | NUR ---
Knife Setter note: This SW met with the patient to assess for the need of community resources. Patient is a 54 year old male. Patient was admitted to the hospital on 05/14/2020 for left foot necrosis. Patient is alert, oriented, and was eating lunch when SW entered the room. Patient lives in [place], however has been staying with his mother in [place], where he will return to upon discharge. Address is [address] [place] [address]. 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 SW explored patient's needs for community resources, and patient stated that he did not have any needs at this time, as he was returning home to live with his mother. At this time, no SS interventions are needed. Patient to be discharged home, when medically stable.
--- NOTE | 2020-05-20 15:45 | NUR ---
pt discharge home with all belongings, paperwork and prescriptions, ID band removed, IV line removed at 1330. Pt was waiting for ride that could not come, and had to reschedule another ride. pt was picked up at 1540. pt left via wheelchair to taxi. ambulatory with walker, all medications given as ordered, no reports of pain, dressing changed, dry, clean and intact, no signs of distress noted.
== END 2020-05-20 15:45 | disposition home or self-care (01) | DRG 951 ==
LOC: ER 17:22 → MEDSURG3 20:50
PROVIDERS: ADMIT Registered Nurse; ATTEND Nurse Practitioner Acute Care
PROC: 0LBW0ZZ Excision of Left Foot Tendon, Open Approach (ICD-10-PCS; principal; 2020-05-18)
PROC: 0LBP0ZZ Excision of Left Lower Leg Tendon, Open Approach (ICD-10-PCS; principal; 2020-05-18)
PROC: 05H533Z Insertion of Infusion Device into Right Subclavian Vein, Percutaneous Approach (ICD-10-PCS; 2020-05-19)
PROC: B546ZZA Ultrasonography of Right Subclavian Vein, Guidance (ICD-10-PCS; 2020-05-19)
DX: L03.116 Cellulitis of left lower limb (principal); M72.6 Necrotizing fasciitis; E11.40 Type 2 diabetes mellitus with diabetic neuropathy, unspecified; E11.621 Type 2 diabetes mellitus with foot ulcer; F19.10 Other psychoactive substance abuse, uncomplicated; E87.1 Hypo-osmolality and hyponatremia; J45.909 Unspecified asthma, uncomplicated; Z88.2 Allergy status to sulfonamides; D72.829 Elevated white blood cell count, unspecified; D64.9 Anemia, unspecified; R64 Cachexia; Z68.1 Body mass index [BMI] 19.9 or less, adult; L97.829 Non-pressure chronic ulcer of other part of left lower leg with unspecified severity; F17.210 Nicotine dependence, cigarettes, uncomplicated; W26.0XXS Contact with knife, sequela; S91.332S Puncture wound without foreign body, left foot, sequela; Z20.822 Contact with and (suspected) exposure to COVID-19; L97.329 Non-pressure chronic ulcer of left ankle with unspecified severity; L97.529 Non-pressure chronic ulcer of other part of left foot with unspecified severity
CPT/HCPCS: 36415; 71045; 83550; 83735; 84100; 84443; 85025; 85610; 86850; 86900; 86901; 87040; 87070; 87806; 93005; 94640; A4217; A4649; A4663; G0378; J0743; J1650; J2185; J2270; J3010; J3370; J3490; J3535; J7030; J7050; J7060; Q0163

== ENCOUNTER 2020-08-17 15:56 | Inpatient (IN) | payer MEDICAID ==
[~2020-08-17] VITALS: Ht 172.7 cm; Wt 59.0 kg
[~2020-08-17 15:56] MED LIST changes: +DOXY150T3 PO; +LEVO500T90 PO; +METF-440 PO
[2020-08-17] MEDS ORDERED: VANCOMYCIN IV 1,000 MG in IV DEXTROSE 5% 250 ML IV ONE (16:30)
[2020-08-17] MEDS ORDERED: IV NORMAL SALINE 1000 ML BAG IV ONE (16:30)
[2020-08-17] MEDS ORDERED: VANCOMYCIN IV 200 ML ONE (16:38)
[2020-08-17 16:51] LABS: HEMATOCRIT 31.3 % (36.7-47.1); MEAN CORPUSCULAR HEMOGLOBIN 27.9 uug (23.8-33.4); MEAN CORPUSCULAR VOLUME 85.1 fL (73.0-96.2); PLATELET COUNT (AUTO) 380 K/uL (152-348)
[2020-08-17 16:54] LABS: CREATININE 0.8 mg/dL (0.6-1.3); POTASSIUM 3.9 mmol/L (3.5-5.1)
[2020-08-17 17:01] LABS: BILIRUBIN,DIRECT 0.1 mg/dL (0.0-0.2); BILIRUBIN,TOTAL 0.1 mg/dL (0.2-1.0)
[2020-08-17] MEDS ORDERED: ALBUTEROL SULFATE 8 GM HFA.AER.AD INH PRN (18:00)
[2020-08-17] MEDS ORDERED: ONDANSETRON 4 MG/2 ML VIAL IV PRN (18:00)
[2020-08-17] MEDS ORDERED: INSULIN REGULAR, HUMAN 300 UNIT/3 ML VIAL SQ PRN (18:00)
[2020-08-17] MEDS ORDERED: DEXTROSE 50% 50 ML DISP.SYRIN IV PRN (18:00)
[2020-08-17] MEDS ORDERED: MAGNESIUM HYDROXIDE 30 ML LIQUID UDC PO PRN (18:00)
[2020-08-17] MEDS ORDERED: INSULIN REGULAR, HUMAN 300 UNITS/3 ML VIAL SQ PRN (18:00)
[2020-08-17] MEDS ORDERED: ACETAMINOPHEN 325 MG TABLET PO PRN (18:00)
[2020-08-17] MEDS ORDERED: Z GUARD REMEDY PASTE 57 GM TUBE TOP PRN (18:00)
--- NOTE | 2020-08-17 18:01 | NUR ---
Patient is resting comfortably on gurney with eyes closed. Pt is admitted to [facility] room 322, under care of Dr. Viera. Belongings List completed. MRSA swab collected.
[2020-08-17] MEDS ORDERED: ALBUTEROL SULFATE 2.5 MG/3 ML NEBU NEB PRN (18:30)
[2020-08-17 18:40] VITALS: BP 128/83
--- NOTE | 2020-08-17 18:40 | NUR ---
received patient from ER in stable condition, patient admitted in stable, no complains of any pain or discomfort at this time. call light within reach. will report to oncoming shift.
[2020-08-17] MEDS: METFORMIN HCL 500 MG TABLET PO SCH (19:25)
--- NOTE | 2020-08-17 20:11 | NUR ---
Received patient in bed alert x4.On RA, denies SOB. no c/o pain at this time.Cellulitis on LT lower leg, dressing changed .Tolerated well. Iv on right hand patent and intact.VSS.Call light with in reach.will continue to monitor.
[2020-08-17 20:20] VITALS: BP 138/87
[2020-08-17] MEDS: ENOXAPARIN SODIUM 40 MG/0.4 ML DISP.SYRIN SQ SCH (20:51)
[2020-08-17] MEDS: BLOOD SUGAR DIAGNOSTIC 1 EACH STRIP VI SCH (20:56)
[2020-08-18] MEDS: HYDROCODONE/APAP 5-325MG TABLET PO PRN ×3 (02:33→20:13)
[2020-08-18 04:33] VITALS: BP 143/87
[2020-08-18] MEDS: VANCOMYCIN IV 750 MG in IV DEXTROSE 5% 250 ML IV SCH ×2 (05:12→17:02)
[2020-08-18 06:30] LABS: HEMATOCRIT 32.4 % (36.7-47.1); MEAN CORPUSCULAR HEMOGLOBIN 27.8 uug (23.8-33.4); MEAN CORPUSCULAR VOLUME 85.1 fL (73.0-96.2); PLATELET COUNT (AUTO) 395 K/uL (152-348)
[2020-08-18] MEDS: BLOOD SUGAR DIAGNOSTIC 1 EACH STRIP VI SCH ×4 (06:32→20:18)
[2020-08-18 06:45] LABS: CREATININE 0.7 mg/dL (0.6-1.3); PHOSPHOROUS 3.4 mg/dL (2.5-4.9); POTASSIUM 3.8 mmol/L (3.5-5.1)
--- NOTE | 2020-08-18 07:30 | NUR ---
Resting but easily arousable. Breathing non labored on room air comfortable. Left leg dressing intact. Able to ambulate to the bathroom by himself. Denies pain at this time. Bed is low and locked. Call light in place. Continue to monitor.
--- NOTE | 2020-08-18 08:09 | NUR ---
Seen by Dr. Viera with order for podiatry consult.
[2020-08-18] MEDS: METFORMIN HCL 500 MG TABLET PO SCH ×2 (08:38→18:19)
[2020-08-18 12:00] VITALS: BP 122/93
--- NOTE | 2020-08-18 12:03 | NUR ---
WOUND CARE CONSULT: PT PRESENTS WITH LARGE PURULENT WOUND TO LEFT FOOT/LOWER LEG AND SACRAL STAGE 2 ULCER, PRESENT ON ADMISSION. PT STATES HAS HAD SACRAL ULCER FOR 4 DAYS. RECOMMENDATIONS MADE FOR WOUND CARE AND SKIN PROTECTION. DISCUSSED WITH NURSING STAFF. DEFER TO DPM (DR ROOT ) FOR LEFT LOWER LEG WOUND. MD IN AGREEMENT WITH PLAN OF CARE. Addendum: 08/18/20 at 1205 by JOSE DANIEL BRAXTON RN Amended: Links added.
--- NOTE | 2020-08-18 12:16 | NUR ---
Seen and examined by Jami for wound care. Patient states he's had sacral pressure ulcer st 2 for 4 days. Wound care done as ordered. Patient denies pain.
--- NOTE | 2020-08-18 14:00 | NUR ---
Seen and examined by Dr. Bernabe.
[2020-08-18 16:00] VITALS: BP 150/98
--- NOTE | 2020-08-18 18:56 | NUR ---
Resting but easily arousable. No acute distress. Denies pain. Debridement done by Dr. Bernabe tolerated. BS rechecked noted 219. Voiding well. Needs attended.
--- NOTE | 2020-08-18 19:30 | NUR ---
RECEIVED PT AWAKE, ALERT AND ORIENTEDX4. PT IN NO ACUTE DISTRESS. IV INTACT. SAFETY AND COMFORT PROVIDED. WILL CONTINUE TO MONITOR.
--- NOTE | 2020-08-18 20:10 | NUR ---
NORCO PRN GIVEN TO PT FOR 7/10 PAIN ON HIS LEFT LEG AND FOOT. PT TOLERATED IT WELL.
[2020-08-18] MEDS: ENOXAPARIN SODIUM 40 MG/0.4 ML DISP.SYRIN SQ SCH (20:17)
[2020-08-18 20:45] VITALS: BP 134/92
--- NOTE | 2020-08-18 21:00 | NUR ---
PT REFUSED HIS LOVENOX AND TO CHECK HIS BLOOD SUGAR. WILL CONTINUE TO MONITOR.
[2020-08-18] MEDS: ALBUTEROL SULFATE 2.5 MG/3 ML NEBU NEB SCH (21:04)
--- NOTE | 2020-08-18 21:35 | NUR ---
LAB CALLED TO SAY THAT PRC RESULT IS NEGATIVE.
[2020-08-19] MEDS: HYDROCODONE/APAP 5-325MG TABLET PO PRN (02:32)
[2020-08-19 04:20] LABS: CARBON DIOXIDE 28 mmol/L (21-32); CHLORIDE 104 mmol/L (98-107); CREATININE 0.6 mg/dL (0.6-1.3); GLUCOSE 118 mg/dL (74-106); POTASSIUM 3.6 mmol/L (3.5-5.1); UREA NITROGEN, BLOOD 9 mg/dL (7-18)
[2020-08-19 04:50] VITALS: BP 132/89
[2020-08-19] MEDS: VANCOMYCIN IV 750 MG in IV DEXTROSE 5% 250 ML IV SCH (05:40)
--- NOTE | 2020-08-19 06:20 | NUR ---
PT SLEPT INTERMITTENTLY. PT IN NO ACUTE DISTRESS. IV INTACT. PRESCRIBED MEDICATION GIVEN AND PT TOLERATED IT WELL.PT WOKEUP AT 0215H AND ASKED FOR HIS MORPHINE MEDICATION, TOLD HIM HE DOESN'T HAVE ANY MORPHINE BUT HAS NORCO. HE STATED HE TOOK IT BEFORE AND MAKE HIM SLEEP. REVIEWED HIS CHART AND TOLD HIM HE DIDN'T GET ANY MORPHINE SINCE HE WAS ADMITTED IN ER. TOLD HIM ONLY NORCO WAS ORDERED FOR HIM. AT 0232H NORCO 5-325MG PRN GIVEN TO PT FOR LEFT LEG AND FOOT PAIN. PT REFUSED TO HAVE HIS BLOOD SUGAR CHECKED IN AM AND LAST NIGHT. HE STATED THE STONECUTTER HAND HAVE HIS BLOOD SO WE JUST NEED TO CHECK HIS RESULT FROM THERE. SAFETY AND COMFORT PROVIDED. ALL NEEDS ARE MET.WILL ENDORSE TO INCOMING NURSE FOR CONTINUITY OF CARE.
[2020-08-19] MEDS: BLOOD SUGAR DIAGNOSTIC 1 EACH STRIP VI SCH ×3 (06:31→15:54)
--- NOTE | 2020-08-19 07:30 | NUR ---
Patient received in bed with eyes closed, but easily arousable. Patient states he has no pain or discomforts at this time and is ready to go home. If discharged today, patient states his friend Augie is able available for transport. Patient refused to have his blood sugar checked with the previous shift, but blood draw shows glucose level of 118 and no insulin was given as per protocol. IV on his right hand 20G is patent with no redness or swelling. Patient on RA with no SOB or difficulties breathing. Call light and personal belongings within easy reach. Will continue to monitor.
[2020-08-19] MEDS: METFORMIN HCL 500 MG TABLET PO SCH ×2 (08:17→17:08)
[2020-08-19] MEDS: ALBUTEROL SULFATE 2.5 MG/3 ML NEBU NEB SCH ×3 (08:24→15:30)
[2020-08-19] MEDS ORDERED: SULF1TAB48 PO (08:42)
--- NOTE | 2020-08-19 10:00 | NUR ---
Patient aware of pending discharge after lunch once culture results come back. Patient states his friend, Augie will be taking him home. Patient states his girlfriend will be able to help him at home.
[2020-08-19 10:45] VITALS: BP 139/90
[2020-08-19] MEDS ORDERED: MAG HYDROX/AL HYDROX/SIMETH 30 ML LIQUID UDC PO ONE (11:45)
--- NOTE | 2020-08-19 11:45 | NUR ---
Patient states he is experiencing upset stomach. Had a soft brown BM this morning. Contacted Dr. Viera with new orders for 15 mL Mylanta once PRN upset stomach. Will administer as ordered and continue to monitor.
[2020-08-19] MEDS ORDERED: VANCOMYCIN IV 750 MG in IV DEXTROSE 5% 250 ML IV SCH (13:00)
[2020-08-19 15:05] VITALS: BP 121/86
--- NOTE | 2020-08-19 15:54 | NUR ---
Spoke to lab and as per lab, the pending culture will not be ready today. It will take a minimum of [address] Updated [address]. Viera and asked for discharge clarification orders. As per Dr. Viera, okay to discharge patient without the culture results. Informed patient and patient expressed understanding. Stated that his friend ("brother in law"), Augie, could be here at 1900 tonight. Patient also refused blood sugar check stating that it doesn't matter since he'll be going home. Patient educated on importance and benefits of blood sugar checks, but continues to refuse. Will continue to monitor and proceed with discharge.
--- NOTE | 2020-08-19 17:50 | NUR ---
Patient is denying wound pictures for discharge at this time.
--- NOTE | 2020-08-19 18:24 | NUR ---
Patient is discharged and was picked up by Augie, his friend, with all his personal belongings. He was instructed on picking up his new medications from the pharmacy and to follow up with his primary care within a week. All information was given to him and he expressed understanding. Discharged in satisfactory condition.
== END 2020-08-19 18:20 | disposition home or self-care (01) | DRG 383 ==
LOC: ER 15:57 → MEDSURG3 18:09
PROVIDERS: ADMIT Internal Medicine; ATTEND Internal Medicine
PROC: 0JBP0ZZ Excision of Left Lower Leg Subcutaneous Tissue and Fascia, Open Approach (ICD-10-PCS; principal; 2020-08-18)
DX: L03.116 Cellulitis of left lower limb (principal); E11.40 Type 2 diabetes mellitus with diabetic neuropathy, unspecified; E11.622 Type 2 diabetes mellitus with other skin ulcer; Z86.14 Personal history of Methicillin resistant Staphylococcus aureus infection; Z79.84 Long term (current) use of oral hypoglycemic drugs; F19.10 Other psychoactive substance abuse, uncomplicated; F17.200 Nicotine dependence, unspecified, uncomplicated; Z88.2 Allergy status to sulfonamides; Z20.822 Contact with and (suspected) exposure to COVID-19; L97.928 Non-pressure chronic ulcer of unspecified part of left lower leg with other specified severity; L97.328 Non-pressure chronic ulcer of left ankle with other specified severity; Z71.6 Tobacco abuse counseling; J44.9 Chronic obstructive pulmonary disease, unspecified
CPT/HCPCS: 36415; 70030-TC; 71045; 73610; 83605; 83690; 83735; 84100; 85025; 85730; 87040; 87070; 87077; 93005; 94640; 94664; A4663; G0378; J1650; J1815; J3370; J7030; J7040; J7060; U0003

== ENCOUNTER 2021-03-31 18:24 | Inpatient (IN) | payer MEDICAID, OTHER ==
[~2021-03-31] VITALS: Ht 177.8 cm; Wt 63.5 kg
[~2021-03-31 18:24] MED LIST changes: -DOXY150T3 PO; -LEVO500T90 PO; +SULF1TAB48 PO
[2021-03-31] MEDS ORDERED: IV NS 1000 ML 1,000 ML IV ONE (19:00)
[2021-03-31] MEDS ORDERED: VANCOMYCIN 1G/D5W 200 ML PIGGYBACK IV ONE (19:00)
[2021-03-31] MEDS ORDERED: KETOROLAC TROMETHAMINE 15 MG INJ IVP ONE (19:00)
[2021-03-31 19:49] LABS: HEMATOCRIT 33.9 % (36.7-47.1); MEAN CORPUSCULAR HEMOGLOBIN 28.1 uug (23.8-33.4); MEAN CORPUSCULAR VOLUME 86.3 fL (73.0-96.2); PLATELET COUNT (AUTO) 340 K/uL (152-348)
[2021-03-31 19:55] LABS: CARBON DIOXIDE 33 mmol/L (21-32); CHLORIDE 100 mmol/L (98-107); CREATININE 0.6 mg/dL (0.6-1.3); GLUCOSE 128 mg/dL (74-106); POTASSIUM 3.9 mmol/L (3.5-5.1); UREA NITROGEN, BLOOD 13 mg/dL (7-18)
[2021-03-31] MEDS ORDERED: KETOROLAC TROMETHAMINE 15 MG INJ ONE (19:56)
[2021-03-31] MEDS ORDERED: VANCOMYCIN IV 200 ML ONE (19:57)
--- NOTE | 2021-03-31 19:58 | NUR ---
pt a/o iv was started and iv antibiotics. pt c/o pain to lower extremity.
[2021-03-31 20:10] LABS: ALANINE AMINOTRANSFERASE 36 U/L (16-63); ALKALINE PHOSPHATASE 135 U/L (50-136); ASPARTATE AMINOTRANSFERASE 25 U/L (15-37); BILIRUBIN,DIRECT 0.1 mg/dL (0.0-0.2); BILIRUBIN,TOTAL 0.2 mg/dL (0.2-1.0); TOTAL PROTEIN, SERUM 7.1 g/dL (6.4-8.2)
--- NOTE | 2021-03-31 21:52 | NUR ---
second call to Dr. Jacob for Dr. Gregorio.
--- NOTE | 2021-03-31 21:53 | NUR ---
Report given to Jane GALLEGOS pt to go to room 315
[2021-03-31 22:00] VITALS: BP 140/82
--- NOTE | 2021-03-31 22:09 | NUR ---
call placed to Dr. Jacob.
--- NOTE | 2021-03-31 22:33 | NUR ---
pt taken to room 315 Jane RN at bedside to receive the patient.
--- NOTE | 2021-03-31 22:40 | NUR ---
RECEIVED PATIENT VIA GURNEY FROM ER. PATIENT IS A/O X4. OPEN WOUND NOTED TO LEFT LOWER LEG. NO C/O PAIN AT THIS TIME. NO RESP. DISTRESS NOTED. H/L INTACT AND PATENT, NOTED TO LEFT FA #20 GAUGE. ORIENTED PATIENT TO ROOM AND CALL LIGHT. CALL LIGHT IN REACH. ALL NEEDS ATTENDED. WILL CONTINUE TO MONITOR AND ASSESS.
[2021-03-31] MEDS ORDERED: ACETAMINOPHEN 325 MG TABLET PO PRN (23:00)
[2021-03-31] MEDS ORDERED: ONDANSETRON 4 MG/2 ML VIAL IV PRN (23:00)
[2021-03-31] MEDS ORDERED: ZOLPIDEM 5 MG TABLET PO PRN (23:00)
[2021-03-31] MEDS ORDERED: MAGNESIUM HYDROXIDE 30 ML LIQUID UDC PO PRN (23:00)
[2021-03-31] MEDS ORDERED: REMEDY ESSENTIAL ZINC PASTE 113 GM TP PRN (23:00)
[2021-04-01] MEDS ORDERED: VANCOMYCIN 1000 MG VIAL ONE (03:52)
[2021-04-01 04:00] VITALS: BP 123/62
[2021-04-01] MEDS ORDERED: VANCOMYCIN IV 1,000 MG in IV DEXTROSE 5% 250 ML IV SCH (04:00)
[2021-04-01 06:37] LABS: HEMATOCRIT 33.8 % (36.7-47.1); MEAN CORPUSCULAR HEMOGLOBIN 28.6 uug (23.8-33.4); MEAN CORPUSCULAR VOLUME 86.1 fL (73.0-96.2); PLATELET COUNT (AUTO) 342 K/uL (152-348)
[2021-04-01 07:13] LABS: CARBON DIOXIDE 29 mmol/L (21-32); CHLORIDE 103 mmol/L (98-107); CREATININE 0.5 mg/dL (0.6-1.3); GLUCOSE 117 mg/dL (74-106); MAGNESIUM 2.1 mg/dL (1.8-2.4); PHOSPHOROUS 3.2 mg/dL (2.5-4.9); POTASSIUM 3.9 mmol/L (3.5-5.1); UREA NITROGEN, BLOOD 11 mg/dL (7-18)
[2021-04-01 07:58] VITALS: BP 131/72
--- NOTE | 2021-04-01 09:40 | NUR ---
Arrived to patient's room awake, alert, and oriented. Patient able to make needs known. IV site intact and patent. Call light within reach with bed left in lowest position. Patient to receive antibiotics at 1200. Will monitor patient throughout shift.
[2021-04-01] MEDS: VANCOMYCIN IV 1,000 MG in IV DEXTROSE 5% 250 ML IV SCH ×2 (11:02→21:01)
--- NOTE | 2021-04-01 11:15 | NUR ---
WOUND CARE CONSULT: PT PRESENTS WITH PURULENT WOUND TO LEFT ANTERIOR FOOT, PRESENT ON ADMISSION. DR ROOT NOTIFIED OF DPM CONSULT REQUEST. PT IS VERY THIN AND BONY BUT IS ABLE TO ASSIST WITH TURNING AND REPOSITIONING IN BED. MD IN AGREEMENT WITH PLAN OF CARE.
[2021-04-01 15:41] VITALS: BP 154/97
[2021-04-01] MEDS ORDERED: ALBUTEROL SULFATE 8 GM HFA.AER.AD INH PRN (16:00)
[2021-04-01] MEDS ORDERED: DEXTROSE 50% 50 ML DISP.SYRIN IV PRN (16:00)
[2021-04-01] MEDS ORDERED: INSULIN REGULAR, HUMAN 300 UNITS/3 ML VIAL SQ PRN (16:00)
[2021-04-01] MEDS ORDERED: ALBUTEROL SULFATE 2.5 MG/3 ML NEBU NEB PRN (16:15)
[2021-04-01] MEDS: BLOOD SUGAR DIAGNOSTIC 1 EACH STRIP VI SCH ×2 (16:42→21:00)
[2021-04-01] MEDS: HYDROCODONE/APAP 5-325MG TABLET PO PRN (16:53)
--- NOTE | 2021-04-01 18:20 | NUR ---
Patient in bed distressed due to withdrawal from heroin use. Patient received norco per Dr. Jacob orders. Patient in bed resting. Wound consult on patient's LLL due to cellulitis. New dressing placed this afternoon by Dr. Verdugo. Bed left in lowest position with call light within reach. Will endorse information to PM nurse.
--- NOTE | 2021-04-01 19:00 | NUR ---
Patient refused blood draw for Vanco trough. Will notify pharmacy.
--- NOTE | 2021-04-01 19:30 | NUR ---
Patient is sleeping, AAO to person and place. Patient is restless, yelling at staff to turn off the light and complaining of being cold. Covered with warm blanket and patient satisfied. On RA, no SOB noted. Left FA IV in place, patent and intact. Safety measures initiated, call light within reach.
--- NOTE | 2021-04-01 20:00 | NUR ---
Spoke to Pharmacy and confirmed that we may administer Vanco as ordered even trough Van Trough was not drawn.
[2021-04-01 20:39] VITALS: BP 110/58
--- NOTE | 2021-04-01 21:30 | NUR ---
Patient yelling at staff, restless, refusing any blood draw or blood sugar check. Explained risks and benefits of blood sugar check and insulin coverage. Patient still refuses.
[2021-04-02] MEDS: HYDROCODONE/APAP 5-325MG TABLET PO PRN (03:50)
[2021-04-02] MEDS: VANCOMYCIN IV 1,000 MG in IV DEXTROSE 5% 250 ML IV SCH (03:51)
[2021-04-02 04:45] VITALS: BP 132/73
--- NOTE | 2021-04-02 05:59 | NUR ---
Patient noted with multiple episodes of restlessness, speaking to himself. Also, hostile with staff and uncooperative. Patient VS are stable. Able to draw blood this am. On Ra, NO sob. Dressing in place, clean and intact to left foot. Call light within reach.
[2021-04-02] MEDS: BLOOD SUGAR DIAGNOSTIC 1 EACH STRIP VI SCH (06:31)
[2021-04-02 06:50] LABS: HEMATOCRIT 37.6 % (36.7-47.1); MEAN CORPUSCULAR HEMOGLOBIN 28.7 uug (23.8-33.4); MEAN CORPUSCULAR VOLUME 85.3 fL (73.0-96.2); PLATELET COUNT (AUTO) 380 K/uL (152-348)
[2021-04-02 07:16] LABS: MAGNESIUM 2.1 mg/dL (1.8-2.4); PHOSPHOROUS 3.2 mg/dL (2.5-4.9)
[2021-04-02 07:23] LABS: CARBON DIOXIDE 27 mmol/L (21-32); CHLORIDE 102 mmol/L (98-107); CREATININE 0.6 mg/dL (0.6-1.3); GLUCOSE 133 mg/dL (74-106); POTASSIUM 3.5 mmol/L (3.5-5.1); UREA NITROGEN, BLOOD 8 mg/dL (7-18)
[2021-04-02 07:26] LABS: THYROID STIMULATING HORMONE 0.112 mIU/mL (0.358-3.740)
[2021-04-02] MEDS: INSULIN REGULAR, HUMAN 300 UNIT/3 ML VIAL SQ PRN ×2 (07:56→08:08)
--- NOTE | 2021-04-02 10:05 | NUR ---
Patient left against medical advice. Patient AOx4. On room air. Restless and yelling at staff and stating wanting to go home. Patient refused morning dose of Humulin R. Informed and explained to patient risks of leaving AMA and patient verbalized understanding. Patient signed AMA form and placed on chart. IV access removed. ID armband removed. Patient belongings accounted for and belongings list signed. Dr. Jacob informed of AMA. Patient stated he would be picked up by friend to take him home.
== END 2021-04-02 10:00 | disposition left against medical advice (07) | DRG 383 ==
LOC: ER 18:32 → MEDSURG3 22:01
PROVIDERS: ADMIT Student in an Organized Health Care Education/Training Program; ATTEND Student in an Organized Health Care Education/Training Program
PROC: 0JBP0ZZ Excision of Left Lower Leg Subcutaneous Tissue and Fascia, Open Approach (ICD-10-PCS; principal; 2021-04-01)
DX: L03.116 Cellulitis of left lower limb (principal); E11.40 Type 2 diabetes mellitus with diabetic neuropathy, unspecified; E11.621 Type 2 diabetes mellitus with foot ulcer; L97.429 Non-pressure chronic ulcer of left heel and midfoot with unspecified severity; J44.9 Chronic obstructive pulmonary disease, unspecified; Z86.14 Personal history of Methicillin resistant Staphylococcus aureus infection; F19.10 Other psychoactive substance abuse, uncomplicated; F17.210 Nicotine dependence, cigarettes, uncomplicated; Z20.822 Contact with and (suspected) exposure to COVID-19
CPT/HCPCS: 36415; 71045; 73590; 73630; 83605; 83735; 84100; 84443; 85025; 85651; 87040; 93005; A4663; A6209; G0378; J1815; J1885; J3370; J7030; J7050; J7060

== ENCOUNTER 2021-05-08 16:58 | Emergency (ER) | payer OTHER ==
[~2021-05-08] VITALS: Ht 177.8 cm; Wt 58.1 kg
[~2021-05-08 16:58] MED LIST changes: -METF-440 PO; -SULF1TAB48 PO
[2021-05-08] MEDS ORDERED: CEPH500C2 PO (17:23)
[2021-05-08] MEDS ORDERED: CLIN300C12 PO (17:23)
[2021-05-08] MEDS ORDERED: CEphaleXIN 250 MG CAPSULE PO ONE (17:30)
[2021-05-08] MEDS ORDERED: NEOMY/BACITRA/POLYMYXIN B OINT UD PACKET TP ONE ×2 (17:30→17:36)
[2021-05-08] MEDS ORDERED: CLINDAMYCIN HCL 150 MG CAPSULE PO ONE (17:30)
[2021-05-08] MEDS ORDERED: CLINDAMYCIN HCL 150 MG CAPSULE ONE (17:34)
[2021-05-08] MEDS ORDERED: CEphaleXIN 250 MG CAPSULE ONE (17:35)
--- NOTE | 2021-05-08 17:48 | NUR ---
PT WAS EVALUATED BY DR MATA. PT WAS D/C'd TO HOME. D/C INSTRUCTIONS GIVEN TO THE PT BY DR MATA.
[2021-05-08 17:49] VITALS: BP 137/78
== END 2021-05-08 17:49 | disposition home or self-care (01) ==
LOC: ER 16:59
DX: L97.821 Non-pressure chronic ulcer of other part of left lower leg limited to breakdown of skin (principal); L03.116 Cellulitis of left lower limb; Z88.2 Allergy status to sulfonamides; J44.9 Chronic obstructive pulmonary disease, unspecified; Z86.14 Personal history of Methicillin resistant Staphylococcus aureus infection; E11.9 Type 2 diabetes mellitus without complications; R03.0 Elevated blood-pressure reading, without diagnosis of hypertension
CPT/HCPCS: A4663

== ENCOUNTER 2021-09-01 15:20 | Inpatient (IN) | payer OTHER ==
[~2021-09-01] VITALS: Ht 177.8 cm; Wt 56.7 kg
[~2021-09-01 15:20] MED LIST changes: +CEPH500C2 PO; +CLIN300C12 PO
[2021-09-01 16:49] LABS: HEMATOCRIT 41.3 % (36.7-47.1); MEAN CORPUSCULAR HEMOGLOBIN 28.2 uug (23.8-33.4); MEAN CORPUSCULAR VOLUME 85.5 fL (73.0-96.2); PLATELET COUNT (AUTO) 302 K/uL (152-348)
[2021-09-01 16:53] LABS: CREATININE 0.9 mg/dL (0.6-1.3); POTASSIUM 3.4 mmol/L (3.5-5.1)
[2021-09-01] MEDS ORDERED: VANCOMYCIN IV 1,000 MG in IV DEXTROSE 5% 250 ML IV ONE (17:00)
[2021-09-01 17:05] LABS: BILIRUBIN,DIRECT 0.1 mg/dL (0.0-0.2); BILIRUBIN,TOTAL 0.1 mg/dL (0.2-1.0); TOTAL PROTEIN, SERUM 7.5 g/dL (6.4-8.2)
[2021-09-01] MEDS ORDERED: VANCOMYCIN IV 200 ML ONE (17:21)
[2021-09-01] MEDS ORDERED: IV NORMAL SALINE 1000 ML BAG IV ONE (17:30)
[2021-09-01] MEDS ORDERED: IV NS 1000 ML 1,000 ML IV PRN (18:00)
[2021-09-01] MEDS ORDERED: ONDANSETRON 4 MG/2 ML VIAL IV PRN (18:00)
[2021-09-01] MEDS ORDERED: REMEDY ESSENTIAL ZINC PASTE 113 GM TP PRN (18:00)
[2021-09-01] MEDS ORDERED: ACETAMINOPHEN 325 MG TABLET PO PRN (18:00)
[2021-09-01] MEDS ORDERED: MAGNESIUM HYDROXIDE 30 ML LIQUID UDC PO PRN (18:00)
--- NOTE | 2021-09-01 19:35 | NUR ---
pt a/o denies pain. started iv vancomycin.
--- NOTE | 2021-09-01 19:57 | NUR ---
called to 3rd floor they inform me the nurse will call back for report.
--- NOTE | 2021-09-01 20:05 | NUR ---
report given to Jonah elias to go to room 315.
--- NOTE | 2021-09-01 20:39 | NUR ---
pt transported to room 315 via health system with all belongings, EL Callejas at bedside to receive the pt.
[2021-09-01 21:16] VITALS: BP 153/100
[2021-09-01] MEDS: CEFTRIAXONE 1 G in IV DEXTROSE 5% 50 ML IV SCH (21:27)
--- NOTE | 2021-09-02 00:19 | NUR ---
received a 55 year male from ER with admitting diagnosis of left foot cellulitis. AAOx4 Ambulatory as desired. Hx of asthma, bronchitis, HTN and cellulitis of the left foot. Left foot clean and pinkish in color, no drainage and LEONARDO. VSS. All needs attended. Voiding well. Has a right arm heplock # 20 flushed and patent. On IV ABT as ordered, tolerated well. No ill effects noted. Denies any pain at this time. Will monitor patient. Left foo5t reddenned and warm to touch. Left foot also swollen.
[2021-09-02 04:00] VITALS: BP 143/102
[2021-09-02 06:36] LABS: HEMATOCRIT 38.2 % (36.7-47.1); MEAN CORPUSCULAR HEMOGLOBIN 28.2 uug (23.8-33.4); MEAN CORPUSCULAR VOLUME 83.9 fL (73.0-96.2); PLATELET COUNT (AUTO) 283 K/uL (152-348)
[2021-09-02 06:54] LABS: ALANINE AMINOTRANSFERASE 25 U/L (16-63); ALKALINE PHOSPHATASE 89 U/L (50-136); ASPARTATE AMINOTRANSFERASE 14 U/L (15-37); BILIRUBIN,TOTAL 0.2 mg/dL (0.2-1.0); CARBON DIOXIDE 29 mmol/L (21-32); CHLORIDE 106 mmol/L (98-107); CREATININE 0.6 mg/dL (0.6-1.3); GLUCOSE 97 mg/dL (74-106); MAGNESIUM 1.8 mg/dL (1.8-2.4); POTASSIUM 3.8 mmol/L (3.5-5.1); TOTAL PROTEIN, SERUM 7.1 g/dL (6.4-8.2); UREA NITROGEN, BLOOD 9 mg/dL (7-18)
[2021-09-02] MEDS: HYDROCODONE/APAP 5-325MG TABLET PO PRN ×2 (09:57→22:09)
[2021-09-02] MEDS: VANCOMYCIN IV 750 MG in IV DEXTROSE 5% 250 ML IV SCH ×2 (09:58→22:17)
--- NOTE | 2021-09-02 10:13 | NUR ---
WOUND CARE CONSULT: PT PRESENTS WITH OPEN WOUND TO LEFT FOOT/ANKLE AREA WHICH IS DRY, PRESENT ON ADMISSION. DPM CONSULT CALLED TO DR HAMPAPUR. [place] IN AGREEMENT WITH PLAN OF CARE.
[2021-09-02] MEDS ORDERED: VANCOMYCIN IV 750 MG in IV DEXTROSE 5% 250 ML IV SCH (13:00)
--- NOTE | 2021-09-02 15:26 | NUR ---
Social Work consult requested for patient on [facility] for subsidized food and nutrition (SNAP) resources. Patient is a 55-year-old male admitted to the hospital for cellulitis. Upon psychosocial rehabilitation counselor assessment, patient was alert and oriented X4. Patient presents with euthymic mood and full range of affect. Patient presents with coherent, and goal directed thought process. SW explored patients social support. Patient states that his primary medicare contact specialist is his sister, Sarina Rivera ([phone]) and they have a good relationship. SW explored patients living situation. Patient states that he lives in a house with his sister, Sarina ([phone]) and mother at [address] [place] [address]. SW explored patients financial status. Patient states that he is unemployed and requested subsidized food and nutrition (SNAP) resources and disability resources. SW gave the patient subsidized food and nutrition (SNAP) resources and disability resources and placed them in the chart. Patient states he is independent with is ADLs and has a walking stick and walker at home. SW explored patients history of substance abuse. Patient states that he has been sober from alcohol and opioids for 10 days. There is no current toxicology report and the toxicology report from 05/15/20 shows positive for opioids. SW offered the patient substance abuse resources and put the resources in the chart. SW explored history of psychiatric diagnosis. Patient denies history of psychiatric diagnosis. Patient denied suicidal or homicidal ideation. SW provided emotional support, validation, and coping strategies. Patient states that his sister, Sarina ([phone]) will pick him up at discharge and he will go home at discharge.
[2021-09-02] MEDS: GLUCERNA SHAKE 237 ML CAN PO SCH (17:17)
[2021-09-02 20:00] VITALS: BP 156/106
[2021-09-02] MEDS: CEFTRIAXONE 1 G in IV DEXTROSE 5% 50 ML IV SCH (21:40)
--- NOTE | 2021-09-03 01:15 | NUR ---
Report received from Carson MCFARLANE
[2021-09-03 04:00] VITALS: BP 151/92
--- NOTE | 2021-09-03 05:41 | NUR ---
Slept throughout the night. No distress noted. Denies pain at this time. Able to make needs known. IV site intact. Will endorse to day shift.
[2021-09-03] MEDS ORDERED: VANCOMYCIN IV 1,000 MG in IV DEXTROSE 5% 250 ML IV SCH (08:00)
[2021-09-03] MEDS: GLUCERNA SHAKE 237 ML CAN PO SCH (08:44)
[2021-09-03] MEDS: HYDROCODONE/APAP 5-325MG TABLET PO PRN (08:48)
--- NOTE | 2021-09-03 15:51 | NUR ---
LEFT AMA STATES HE HAS A RIDE TO PICK HIM UP TODAY. STATES HE PLANS TO KEEP UP WITH HIS PMD AND HIS DRSG CHANGES WITH OUTSIDE NRSG CARE
== END 2021-09-03 14:15 | disposition left against medical advice (07) | DRG 383 ==
LOC: ER 15:20 → MEDSURG3 20:11
PROVIDERS: ADMIT Internal Medicine; ATTEND Internal Medicine
PROC: 0JBR0ZZ Excision of Left Foot Subcutaneous Tissue and Fascia, Open Approach (ICD-10-PCS; principal; 2021-09-02)
DX: L03.116 Cellulitis of left lower limb (principal); E11.40 Type 2 diabetes mellitus with diabetic neuropathy, unspecified; L97.828 Non-pressure chronic ulcer of other part of left lower leg with other specified severity; E11.621 Type 2 diabetes mellitus with foot ulcer; E87.6 Hypokalemia; F17.210 Nicotine dependence, cigarettes, uncomplicated; M79.662 Pain in left lower leg; F19.10 Other psychoactive substance abuse, uncomplicated; F10.10 Alcohol abuse, uncomplicated; J44.9 Chronic obstructive pulmonary disease, unspecified
CPT/HCPCS: 36415; 73630; 83605; 83735; 84100; 85025; 87040; A4663; A6209; G0378; J0696; J3370; J7040; J7050

== ENCOUNTER 2022-09-07 10:46 | Emergency (ER) | payer OTHER ==
[~2022-09-07] VITALS: Ht 177.8 cm; Wt 59.0 kg
[~2022-09-07 10:46] MED LIST changes: +AMOX-430 PO; +HYDR-3980 PO; +IBUP-1955 PO
--- NOTE | 2022-09-07 11:12 | NUR ---
Dr Jack removed sutures from under chin, pt tolorated well.
[2022-09-07 11:13] VITALS: BP 101/76; O2SAT 97
--- NOTE | 2022-09-07 11:16 | NUR ---
Patient discharged to home in stable condition. Written and verbal after care instructions given. Patient verbalizes understanding of instructions. Stressed follow up or return to ER for worsening s/s.
== END 2022-09-07 11:16 | disposition home or self-care (01) ==
LOC: ER 10:46
DX: S01.81XD Laceration without foreign body of other part of head, subsequent encounter (principal); J44.9 Chronic obstructive pulmonary disease, unspecified; E11.9 Type 2 diabetes mellitus without complications; Z88.2 Allergy status to sulfonamides; Z88.8 Allergy status to other drugs, medicaments and biological substances; Z79.1 Long term (current) use of non-steroidal anti-inflammatories (NSAID); Z79.2 Long term (current) use of antibiotics; Z79.899 Other long term (current) drug therapy; X58.XXXD Exposure to other specified factors, subsequent encounter
CPT/HCPCS: A4663